=== PATIENT | male | born 1955 | race Caucasian/White ===

== ENCOUNTER 2016-09-04 11:09 | Inpatient (IN) | payer MEDICAID, OTHER ==
[2016-09-04] VITALS (11 sets, daily range): BP systolic 120–150; BP diastolic 66–97; PULSE 100–141; RESP 18–24; TEMP 96.4–102; O2SAT 83–97
[~2016-09-04 11:09] MED LIST: ADVA100A INH; HYDR-3516 PO; LEVA500T PO; LISI-515 PO; LORA-474 PO; PANT20 PO; PLAV75TA29 PO; PRED10 PO; SPIRCAP INH; VENTAER INH
[2016-09-04] MEDS ORDERED: PIPERACIL-TAZO 4.5 GM PREMIX 100 ML IV STA (11:35)
[2016-09-04] MEDS ORDERED: SODIUM CHLOR 0.9% 1000 ML INJ 1,000 ML IV ONE ×2 (11:35)
[2016-09-04] MEDS ORDERED: AZITHROMYCIN INJ 500 MG in SODIUM CHLOR 0.9% 250 ML INJ 250 ML IV STA (11:35)
[2016-09-04] MEDS ORDERED: SODIUM CHLOR 0.9% 1000 ML INJ 400 ML IV ONE (11:35)
[2016-09-04] MEDS ORDERED: methylPREDNISolone SOD SUCC 125 MG/2 ML VIAL IV ONE (11:45)
[2016-09-04] MEDS ORDERED: ACETAMINOPHEN 325 MG TAB PO ONE (11:45)
--- NOTE | 2016-09-04 12:08 | RADRPT ---
EXAM DATE/TIME: 09/04/2016 11:55 [facility] COMPARISON: CHEST SINGLE AP, June 02, 2016, 18:14. INDICATIONS : Shortness of breath. MEDICAL HISTORY : Hypertension. Chronic obstructive pulmonary disease. Emphysema. SURGICAL HISTORY : Right upper lobectomy ENCOUNTER: Initial ACUITY: 3 days PAIN SCORE: 0/10 LOCATION: Bilateral chest FINDINGS: A single view of the chest demonstrates stable scarring and volume loss in the right lung. The left l louie is clear and well-aerated. No new or acute pulmonary infiltrates are demonstrated. The heart size is stable. No definite pleural effusions. No new or significant changes compared to the prior study. . CONCLUSION: No acute disease. No significant change has occurred. Ethan Rutherford MD on September 04, 2016 at 12:06 Board Certified Radiologist. This report was verified electronically.
[2016-09-04 12:09] LABS: AUTOMATED NEUTROPHIL # 7.8 TH/MM3 (1.8-7.7); BASOPHIL % 0.4 % (0.0-2.0); EOSINOPHIL # 0.2 TH/MM3 (0-0.4); EOSINOPHIL % 1.9 % (0.0-4.0); HEMATOCRIT 42.1 % (39.0-51.0); HEMO FLAGS DIFF FINAL; LYMPH % 10.9 % (9.0-44.0); MEAN CELL VOLUME 88.1 FL (80.0-100.0); MEAN CORPUSCULAR HEMOGLOBIN 30.5 PG (27.0-34.0); MEAN CORPUSCULAR HGB CONC 34.6 % (32.0-36.0); MONO % 3.8 % (0.0-8.0); PLATELET COUNT 224 TH/MM3 (150-450); RED BLOOD COUNT 4.78 MIL/MM3 (4.50-5.90); RED CELL DISTRIBUTION WIDTH 13.7 % (11.6-17.2); WHITE BLOOD COUNT 9.4 TH/MM3 (4.0-11.0)
[2016-09-04 12:18] LABS: APTT (PATIENT) 28.7 SEC (24.3-30.1); INTERNATIONAL NORMALIZED RATIO 0.9 RATIO; PROTHROMBIN TIME - PATIENT 10.4 SEC (9.8-11.6)
[2016-09-04 12:27] LABS: ALT (GPT) 19 U/L (12-78); ANION GAP 7 MEQ/L (5-15); AST (GOT) 21 U/L (15-37); BLOOD UREA NITROGEN 5 MG/DL (7-18); CHLORIDE 97 MEQ/L (98-107); GLOMERULAR FILTRATION RATE 89 ML/MIN (>89); MAGNESIUM 1.6 MG/DL (1.5-2.5); SODIUM (NA) 132 MEQ/L (136-145)
[2016-09-04 12:30] LABS: BLOOD, URINE NEG (NEG); GLUCOSE,URINE NEG (NEG); KETONE, URINE NEG (NEG); NITRITE,URINE NEG (NEG); PH, URINE 6.5 (5.0-8.5); SQUAMOUS EPITHELIAL CELL URINE <1 /hpf (0-5); URINE COLOR LIGHT-YELLOW (YELLW/STRAW)
[2016-09-04 12:30] LABS: ALKALINE PHOSPHATASE 93 U/L (45-117)
[2016-09-04 12:31] LABS: COMMENT (UR) CATH-CULT NOT IND; CULTURE IF INDICATED CATH CULTURE NOT IND
[2016-09-04] MEDS: RESP: ALBUTEROL 2.5 MG/IPRATROPIUM 0.5 MG NEB (SCH) INH ×3 (12:45→17:20)
[2016-09-04] MEDS ORDERED: ONDANSETRON HCL 4 MG/2 ML VIAL IVP PRN (13:00)
[2016-09-04] MEDS ORDERED: NALOXONE HCL 0.4 MG/ML AMP IV PRN (13:00)
[2016-09-04] MEDS ORDERED: MAGNESIUM HYDROXIDE SUSP 30 ML CUP PO PRN (13:00)
[2016-09-04] MEDS ORDERED: ACETAMINOPHEN 325 MG TAB PO PRN (13:00)
[2016-09-04] MEDS ORDERED: SODIUM CHLORIDE 0.9% FLUSH 5 ML FLUSH FLUSH PRN (13:00)
--- NOTE | 2016-09-04 13:57 | PD ---
HPI Chief Complaint: Respiratory Distress Time Seen by Provider: 11:32 Travel History International Travel<30 days: No Contact w/Intl Traveler<30days: No Traveled to known affect area: No History of Present Illness HPI Is a 60-year-old man who presents to the emergency department complaining of "can't breathe". Patient had a cold for about 3 days. Yesterday started having increased cough. Denies her having worsening trouble breathing today. His had fevers, chills. He follows with Dr. Shea for pulmonology, and his primary is Dr. Tai. History Past Medical History Narrative Medical COPD, on 2 L Hypertension Right upper lobe resection the right lung Tetanus Vaccination: < 5 Years Social History Alcohol Use: Yes (EVERYDAY ) Tobacco Use: No Allergies-Medications (Allergen,Severity, Reaction): Coded Allergies: No Known Allergies (Verified , 04/25/16) Reported Meds & Prescriptions Reported Meds & Active Scripts Active Levaquin (Levofloxacin) 500 Mg Tab 500 Mg PO DAILY 4 Days Prednisone 10 Mg Tab 10 Mg PO DIRECTED 12 Days 1 PO TID x 4 days 1 PO BID x 4 days then 1 PO daily x 4 days then stop. Reported Protonix (Pantoprazole Sodium) 20 Mg Tab 20 Mg PO DAILY Spiriva Handihaler (Tiotropium Inh) 18 Mcg Cap 18 Mcg INH DAILY 1 capsule = 18 mcg Plavix (Clopidogrel Bisulfate) 75 Mg Tab 75 Mg PO DAILY Ativan (Lorazepam) 1 Mg Tab 1 Mg PO BID Lisinopril 20 Mg Tab 20 Mg PO DAILY Hydrocodone-Acetaminophen 5-325 mg Tab 1 Tab PO Q6H PRN Ventolin Hfa 18 GM Inh (Albuterol Sulfate) 90 Mcg/Act Aer 2 Puff INH Q4H PRN Advair Diskus Inh (Fluticasone-Salmeterol Inh) 100-50 Mcg/Blist Aer 1 Puff INH BID Rinse mouth after use. Review of Systems Except as stated in HPI: all other systems reviewed are Neg Physical Exam Narrative GENERAL: Well-appearing 60-year-old man, moderate respiratory distress. SKIN: Warm and dry. HEAD: Atraumatic. Normocephalic. EYES: Pupils equal and round. No scleral icterus. No injection or drainage. ENT: No nasal bleeding or discharge. Mucous membranes pink and moist. NECK: Trachea midline. No JVD. CARDIOVASCULAR: Regular rate and rhythm. No murmur appreciated. RESPIRATORY: Moderate respiratory distress. Moderate diffuse wheezing with some rhonchi in the posterior lung pedraza. GASTROINTESTINAL: Abdomen soft, non-tender, nondistended. Hepatic and splenic margins not palpable. MUSCULOSKELETAL: No obvious deformities. No edema. NEUROLOGICAL: Awake and alert. No obvious cranial nerve deficits. Motor grossly within normal limits. Normal speech. PSYCHIATRIC: Appropriate mood and affect; insight and judgment normal. Data Data Last Documented VS Vital Signs Date Time Temp Pulse Resp B/P Pulse Ox O2 Delivery O2 Flow Rate FiO2 09/04/16 13:30 98.6 121 18 133/69 96 Nasal Cannula 4 Orders Complete Blood Count With Diff (09/04/16 11:35) Comprehensive Metabolic Panel (09/04/16 11:35) Prothrombin Time / Inr (Pt) (09/04/16 11:35) Act Partial Throm Time (Ptt) (09/04/16 11:35) Lactic Acid Sepsis Protocol (09/04/16 11:35) Magnesium (Mg) (09/04/16 11:35) Troponin I (09/04/16 11:35) Urinalysis - C+S If Indicated (09/04/16 11:35) Influenzae A/B Antigen (09/04/16 11:35) Blood Culture (09/04/16 11:35) Sputum Culture And Gram Stain (09/04/16 11:35) Chest, Single Ap (09/04/16 11:35) Blood Glucose (09/04/16 11:35) Ecg Monitoring (09/04/16 11:35) Iv Access Insert/Monitor (09/04/16 11:35) Oximetry (09/04/16 11:35) Oxygen Administration (09/04/16 11:35) Piperacil-Tazo 4.5 Gm Premix (Zosyn 4.5 (09/04/16 11:35) Azithromycin Inj (Zithromax Inj) (09/04/16 11:35) Albuterol-Ipratropium Neb (Duoneb Neb) (09/04/16 11:45) Methylprednisolone So Succ Inj (Solumedr (09/04/16 11:45) Acetaminophen (Tylenol) (09/04/16 11:45) Sodium Chlor 0.9% 1000 Ml Inj (Ns 1000 M (09/04/16 11:35) Sodium Chlor 0.9% 1000 Ml Inj (Ns 1000 M (09/04/16 11:35) Sodium Chlor 0.9% 1000 Ml Inj (Ns 1000 M (09/04/16 11:35) Sodium Chloride 0.9% Flush (Ns Flush) (09/04/16 13:00) Sodium Chloride 0.9% Flush (Ns Flush) (09/04/16 21:00) Acetaminophen (Tylenol) (09/04/16 13:00) Ondansetron Inj (Zofran Inj) (09/04/16 13:00) Magnesium Hydroxide Liq (Milk Of Magnesi (09/04/16 13:00) Electrocardiogram (09/04/16 12:58) Resp Oxygen Travis C Titrat 1-4 L (09/04/16 ) Naloxone Inj (Narcan Inj) (09/04/16 13:00) Inpatient Certification (09/04/16 ) Ns + Kcl 20 Meq Inj (Ns + Kcl 20 Meq Inj (09/04/16 13:15) Complete Blood Count With Diff (09/05/16 06:00) Basic Metabolic Panel (Bmp) (09/05/16 06:00) Magnesium (Mg) (09/05/16 06:00) Admit Order (Ed Use Only) (09/04/16 ) Labs Laboratory Tests Test 09/04/16 09/04/16 11:50 12:10 White Blood Count 9.4 TH/MM3 Red Blood Count 4.78 MIL/MM3 Hemoglobin 14.6 GM/DL Hematocrit 42.1 % Mean Corpuscular Volume 88.1 FL Mean Corpuscular Hemoglobin 30.5 PG Mean Corpuscular Hemoglobin 34.6 % Concent Red Cell Distribution Width 13.7 % Platelet Count 224 TH/MM3 Mean Platelet Volume 7.4 FL Neutrophils (%) (Auto) 83.0 % Lymphocytes (%) (Auto) 10.9 % Monocytes (%) (Auto) 3.8 % Eosinophils (%) (Auto) 1.9 % Basophils (%) (Auto) 0.4 % Neutrophils # (Auto) 7.8 TH/MM3 Lymphocytes # (Auto) 1.0 TH/MM3 Monocytes # (Auto) 0.4 TH/MM3 Eosinophils # (Auto) 0.2 TH/MM3 Basophils # (Auto) 0.0 TH/MM3 CBC Comment DIFF FINAL Differential Comment Prothrombin Time 10.4 SEC Prothromb Time International 0.9 RATIO Ratio Activated Partial 28.7 SEC Thromboplast Time Sodium Level 132 MEQ/L Potassium Level 4.0 MEQ/L Chloride Level 97 MEQ/L Carbon Dioxide Level 28.0 MEQ/L Anion Gap 7 MEQ/L Blood Urea Nitrogen 5 MG/DL Creatinine 0.87 MG/DL Estimat Glomerular Filtration 89 ML/MIN Rate Random Glucose 87 MG/DL Lactic Acid Level 1.9 mmol/L Calcium Level 9.1 MG/DL Magnesium Level 1.6 MG/DL Total Bilirubin 1.0 MG/DL Aspartate Amino Transf 21 U/L (AST/SGOT) Alanine Aminotransferase 19 U/L (ALT/SGPT) Alkaline Phosphatase 93 U/L Troponin I LESS THAN 0.02 NG/ML Total Protein 7.7 GM/DL Albumin 3.7 GM/DL Urine Color LIGHT-YELLOW Urine Turbidity CLEAR Urine pH 6.5 Urine Specific [place] 1.007 Urine Protein NEG mg/dL Urine Glucose (UA) NEG mg/dL Urine Ketones NEG mg/dL Urine Occult Blood NEG Urine Nitrite NEG Urine Bilirubin NEG Urine Urobilinogen LESS THAN 2.0 MG/DL Urine Leukocyte Esterase NEG Urine RBC 1 /hpf Urine WBC LESS THAN 1 /hpf Urine Squamous Epithelial <1 /hpf Cells Microscopic Urinalysis Comment CATH-CULT NOT IND MDM Medical Decision Making Medical Screen Exam Complete: Yes Emergency Medical Condition: Yes Interpretation(s) My review of EKG: Sinus tachycardia rate of 126, leftward axis, normal intervals , no definite evidence of acute ischemia. Chest x-ray: Negative LABS: CBC unremarkable. CMP unremarkable. Lactate 1.9 Troponin negative Coags unremarkable UA negative Differential Diagnosis Pneumonia, bronchitis, COPD exacerbation, other Narrative Course Medical decision making 60-year-old man who presents emergent from with URI symptoms, probable bronchitis or pneumonia. Moderate respiratory distress. Improved with bronchodilators and steroids. We'll give antibiotic treatment for healthcare associated pneumonia. Admission. Diagnosis Primary Impression: COPD (chronic obstructive pulmonary disease) Qualified Code: J44.1 - Chronic obstructive pulmonary disease with acute exacerbation Kleber Reaves MD Sep 04, 2016 13:57
--- NOTE | 2016-09-04 14:25 | HHI.HP ---
[facility] Primary [facility] Physician Kody Giang M.D. Admission Diagnosis Sepsis, Bronchitis Diagnoses: Chief Complaint: Shortness of breath Travel History International Travel<30 Days: No Contact w/Intl Traveler <30 Da: No Traveled to Known Affected Are: No History of Present Illness This is a 60-year-old male with history of hypertension, severe COPD on home oxygen, status post pneumonectomy in the past who has been in his usual state of health until 4 days ago when he started becoming short of breath, associated with cough productive with yellowish sputum and low-grade fever. Shortness of breath became so progressive and severe today despite using nebulizer treatment since the patient decided to go to the hospital. Patient denies any chest pain , palpitations, abdominal pain, nausea, vomiting, diarrhea, or lower extremity swelling. 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 Past Surgical History IVC filter Right lung lobectomy Reported Medications Last Impressions Chest X-Ray 09/04/16 1135 Signed Impressions: Service Date/Time: Sunday, September 04, 2016 11:55 - CONCLUSION: No acute disease. No significant change has occurred. Ethan Rutherford MD Allergies: Coded Allergies: No Known Allergies (Verified , 04/25/16) Family History Mom: still living and extremely healthy. Dad: heart disease but was a very heavy smoker and drinker. in his 70s. Social History Tobacco use: Denies, stopped smoking 15 years ago. Alcohol use: 6-8 beers a day Illicit drug use: Denies Physical Exam Vital Signs Vital Signs Date Time Temp Pulse Resp B/P Pulse Ox O2 Delivery O2 Flow Rate FiO2 09/04/16 13:30 98.6 121 18 133/69 96 Nasal Cannula 4 09/04/16 12:48 96 Nasal Cannula 4.00 09/04/16 12:10 126 20 150/72 95 Nasal Cannula 4 09/04/16 11:25 95 Nasal Cannula 4 09/04/16 11:25 128 24 94 Nasal Cannula 4 09/04/16 11:20 102.0 129 22 149/97 92 09/04/16 11:10 101.9 141 18 136/87 83 Room Air Physical Exam GENERAL: Mild distress, HEAD: Atraumatic. Normocephalic. No temporal or scalp tenderness. EYES: PERRL, full EOMs, no jaundice, nonicteric, pink conjunctivae without injection, moist mucosa ENT: Nose without bleeding, purulent drainage. Throat without erythema, tonsillar hypertrophy or exudate. Uvula midline. Airway patent. NECK: Trachea midline, no mass, no obvious thyromegaly. No JVD or lymphadenopathy. CARDIOVASCULAR: Borderline tachycardic, regular rhythm, no murmurs. RESPIRATORY: Bilateral rhonchi, no crackles, occasional wheezing anteriorly especially on the left. GASTROINTESTINAL: Abdomen soft, normal bowel sounds, non-tender, nondistended. No hepato-splenomegaly or palpable mass. No guarding. ALECIA and exam deferred. MUSCULOSKELETAL: Extremities without clubbing, cyanosis, trace edema. No joint tendernes. No calf tenderness. Distal pulses intact, 2+ bilaterally. INTEGUMENTARY: Warm and dry, no rash of generalized distribution. NEUROLOGICAL: Awake, alert, oriented 3. No obvious cranial nerve deficits. Moves all 4 extremities, muscle strength testing 5 over 5. Motor and sensory grossly within normal limits. .Supple neck, no meningeal signs. Grossly negative cerebellar examination. No focal neurologic deficits. PSYCHIATRIC: Normal mood, appropriate affect. Laboratory Laboratory Tests Test 09/04/16 09/04/16 11:50 12:10 White Blood Count 9.4 Red Blood Count 4.78 Hemoglobin 14.6 Hematocrit 42.1 Mean Corpuscular Volume 88.1 Mean Corpuscular Hemoglobin 30.5 Mean Corpuscular Hemoglobin 34.6 Concent Red Cell Distribution Width 13.7 Platelet Count 224 Mean Platelet Volume 7.4 Neutrophils (%) (Auto) 83.0 Lymphocytes (%) (Auto) 10.9 Monocytes (%) (Auto) 3.8 Eosinophils (%) (Auto) 1.9 Basophils (%) (Auto) 0.4 Neutrophils # (Auto) 7.8 Lymphocytes # (Auto) 1.0 Monocytes # (Auto) 0.4 Eosinophils # (Auto) 0.2 Basophils # (Auto) 0.0 CBC Comment DIFF FINAL Differential Comment Prothrombin Time 10.4 Prothromb Time International 0.9 Ratio Activated Partial 28.7 Thromboplast Time Sodium Level 132 Potassium Level 4.0 Chloride Level 97 Carbon Dioxide Level 28.0 Anion Gap 7 Blood Urea Nitrogen 5 Creatinine 0.87 Estimat Glomerular Filtration 89 Rate Random Glucose 87 Lactic Acid Level 1.9 Calcium Level 9.1 Magnesium Level 1.6 Total Bilirubin 1.0 Aspartate Amino Transf 21 (AST/SGOT) Alanine Aminotransferase 19 (ALT/SGPT) Alkaline Phosphatase 93 Troponin I LESS THAN 0.02 Total Protein 7.7 Albumin 3.7 Urine Color LIGHT-YELLOW Urine Turbidity CLEAR Urine pH 6.5 Urine Specific [place] 1.007 Urine Protein NEG Urine Glucose (UA) NEG Urine Ketones NEG Urine Occult Blood NEG Urine Nitrite NEG Urine Bilirubin NEG Urine Urobilinogen LESS THAN 2.0 Urine Leukocyte Esterase NEG Urine RBC 1 Urine WBC LESS THAN 1 Urine Squamous Epithelial <1 Cells Microscopic Urinalysis Comment CATH-CULT NOT IND Date/Time Procedure Status Source Growth 09/04/16 11:50 Influenza Types A,B Antigen (JARAD) - Final Complete Nasal Washing NEGATIVE FOR FLU A AND B ANTIGEN.... 09/04/16 11:50 Gram Stain Received Sputum Expectorated Sputum Pending 09/04/16 11:50 Sputum Culture Received Sputum Expectorated Sputum Pending 09/04/16 11:50 Aerobic Blood Culture Received Blood Peripheral Pending 09/04/16 11:50 Anaerobic Blood Culture Received Blood Peripheral Pending Result Diagram: 09/04/16 1150 09/04/16 1150 Imaging Last Impressions Chest X-Ray 09/04/16 1135 Signed Impressions: Service Date/Time: Sunday, September 04, 2016 11:55 - CONCLUSION: No acute disease. No significant change has occurred. Ethan Rutherford MD Assessment and Plan Assessment and Plan This is a 60-year-old male with history of COPD, hypertension on home oxygen admitted for shortness of breath for 4 days COPD exacerbation with sepsis secondary to pneumonia-patient frequently goes to the hospital, chest x-ray personally reviewed is unremarkable, likely with COPD exacerbation and developing pneumonia. Check Legionella antigen, influenza negative, follow-up sputum culture. Start Zosyn and azithromycin. DuoNeb's [id number] and as needed, expectorants, Solu-Medrol intravenously every 8 hours. Continue Spiriva, it technical architect is Dr. Shea. Continue Advair, Hypertension - continue lisinopril, Vasotec as needed. Anxiety-continue Ativan as needed. ? Peripheral vascular disease-continue Plavix Lovenox for DVT prophylaxis Physician Certification 2 Midnight Certification Type: Admission for Inpatient Services Order for Inpatient Services The services are ordered in accordance with Medicare regulations or non- Medicare payer requirements, as applicable. In the case of services not specified as inpatient-only, they are appropriately provided as inpatient services in accordance with the 2-midnight benchmark. Estimated LOS (days): 2 days is the estimated time the patient will need to remain in the hospital, assuming treatment plan goals are met and no additional complications. Post-Hospital Plan: Home Vance Henderson MD Sep 04, 2016 14:25
[2016-09-04] MEDS: NS + KCL 20 MEQ INJ 1,000 ML IV SCH (14:44)
[2016-09-04] MEDS ORDERED: SODIUM CHLORIDE 0.9% FLUSH 5 ML FLUSH IV FLUSH PRN (14:45)
[2016-09-04] MEDS ORDERED: RESP: ALBUTEROL 2.5 MG/IPRATROPIUM 0.5 MG NEB (PRN) INH (14:45)
[2016-09-04] MEDS ORDERED: ENALAPRILAT 1.25 MG/ML VIAL IV PUSH PRN (15:00)
[2016-09-04] MEDS: ACETAMINOPHEN/HYDROcodone 325 MG/5 MG TAB PO PRN ×2 (15:56→21:53)
[2016-09-04] MEDS: ENOXAPARIN SODIUM 40 MG/0.4 ML SYRINGE SQ SCH (15:58)
[2016-09-04] MEDS: LORazepam 1 MG TAB PO PRN ×2 (17:05→21:53)
[2016-09-04] MEDS: guaiFENesin/CODEINE SYRUP 200 MG/20 MG/10 ML CUP PO PRN ×2 (17:09→21:53)
[2016-09-04] MEDS: PIPERACIL-TAZO 4.5 GM PREMIX 100 ML IV SCH (17:45)
[2016-09-04] MEDS: SODIUM CHLORIDE 0.9% FLUSH 5 ML FLUSH IV FLUSH SCH (20:00)
[2016-09-04] MEDS: methylPREDNISolone SOD SUCC 40 MG/1 ML VIAL IV SCH (20:00)
[2016-09-04] MEDS ORDERED: SODIUM CHLORIDE 0.9% FLUSH 5 ML FLUSH FLUSH SCH (21:00)
[2016-09-04] MEDS: BUDESONIDE-FORMOTEROL 80/4.5 MCG INHALER INH SCH (21:57)
[2016-09-05] VITALS (9 sets, daily range): BP systolic 121–134; BP diastolic 73–81; PULSE 101–109; RESP 18–22; TEMP 95.8–97.5; O2SAT 94–96
[2016-09-05] MEDS: PIPERACIL-TAZO 4.5 GM PREMIX 100 ML IV SCH ×4 (00:01→16:29)
[2016-09-05] MEDS: RESP: ALBUTEROL 2.5 MG/IPRATROPIUM 0.5 MG NEB (SCH) INH ×5 (04:55→21:37)
[2016-09-05] MEDS: NS + KCL 20 MEQ INJ 1,000 ML IV SCH ×2 (05:18→12:17)
[2016-09-05] MEDS: methylPREDNISolone SOD SUCC 40 MG/1 ML VIAL IV SCH ×3 (05:19→20:44)
[2016-09-05] MEDS: guaiFENesin/CODEINE SYRUP 200 MG/20 MG/10 ML CUP PO PRN ×2 (05:54→12:13)
[2016-09-05 08:33] LABS: AUTOMATED NEUTROPHIL # 8.2 TH/MM3 (1.8-7.7); HEMATOCRIT 36.8 % (39.0-51.0); HEMO FLAGS DIFF FINAL; LYMPHOCYTE # 0.3 TH/MM3 (1.0-4.8); MEAN CELL VOLUME 88.1 FL (80.0-100.0); MEAN CORPUSCULAR HEMOGLOBIN 30.1 PG (27.0-34.0); MEAN CORPUSCULAR HGB CONC 34.1 % (32.0-36.0); MONO % 1.6 % (0.0-8.0); NEUT % 95.4 % (16.0-70.0); PLATELET COUNT 174 TH/MM3 (150-450); RED BLOOD COUNT 4.18 MIL/MM3 (4.50-5.90); RED CELL DISTRIBUTION WIDTH 13.8 % (11.6-17.2); WHITE BLOOD COUNT 8.6 TH/MM3 (4.0-11.0)
[2016-09-05 08:54] LABS: BICARBONATE 23.5 MEQ/L (21.0-32.0); MAGNESIUM 1.8 MG/DL (1.5-2.5)
[2016-09-05 08:55] LABS: POTASSIUM 3.8 MEQ/L (3.5-5.1)
[2016-09-05] MEDS: TIOTROPIUM BROMIDE 18 MCG INH INH SCH (09:00)
[2016-09-05] MEDS: BUDESONIDE-FORMOTEROL 80/4.5 MCG INHALER INH SCH ×2 (09:00→20:45)
[2016-09-05] MEDS: LISINOPRIL 20 MG TAB PO SCH (09:28)
[2016-09-05] MEDS: PANTOPRAZOLE SOD 20 MG DELAYED RELEASE TAB PO SCH (09:28)
[2016-09-05] MEDS: CLOPIDOGREL 75 MG TAB PO SCH (09:28)
[2016-09-05] MEDS: SODIUM CHLORIDE 0.9% FLUSH 5 ML FLUSH IV FLUSH SCH ×2 (09:29→20:45)
[2016-09-05] MEDS: ACETAMINOPHEN/HYDROcodone 325 MG/5 MG TAB PO PRN ×2 (12:13→18:13)
[2016-09-05] MEDS ORDERED: AZITHROMYCIN INJ 500 MG in SODIUM CHLOR 0.9% 250 ML INJ 250 ML IV SCH (14:00)
--- NOTE | 2016-09-05 15:55 | EKG ---
Date Performed: 09/04/2016 Time Performed: 11:19:32 PTAGE: 60 years EKG: SINUS TACHYCARDIA BORDERLINE LEFT AXIS DEVIATION Compared to prior tracing no significant c hange ABNORMAL RHYTHM ECG PREVIOUS TRACING : 04/28/2016 20.34 DOCTOR: Gayatri Velasco Interpretating Date/Time 09/05/2016 15:54:08
--- NOTE | 2016-09-05 16:19 | HHI.PR ---
Subjective Remarks Follow-up for COPD Patient is short of breath than yesterday but still not back to normal. No chest pain or palpitations. Has been coughing but cannot bring it up. Afebrile. Patient has questions about nodules that were observed from a CT scan of the chest that was previously done. He is scheduled to have other CT scan of the chest by Dr. Shea September 14. Objective Vitals Vital Signs Date Time Temp Pulse Resp B/P Pulse Ox O2 Delivery O2 Flow Rate FiO2 09/05/16 12:49 97.2 109 18 134/74 94 09/05/16 09:42 95 Nasal Cannula 3.00 09/05/16 08:27 95.8 101 18 121/73 94 09/05/16 06:15 96.1 109 22 133/81 95 09/05/16 00:35 95 Nasal Cannula 3.00 09/04/16 23:55 96.4 102 18 120/72 95 09/04/16 20:30 97.6 109 24 134/70 96 09/04/16 19:59 98.9 100 18 125/66 96 Nasal Cannula 2.5 09/04/16 19:00 97 Nasal Cannula 2.50 09/04/16 17:30 118 18 121/71 96 Nasal Cannula 2.5 I/O 09/04/16 09/04/16 09/04/16 09/05/16 09/05/16 09/05/16 06:59 14:59 22:59 06:59 14:59 22:59 Intake Total 480 ml 720 ml Output Total 1475 ml 0 ml 1200 ml Balance -995 ml 0 ml -480 ml Intake Oral 480 ml 720 ml Output Urine Total 1475 ml 0 ml 1200 ml # Voids 1 # Bowel Movements 0 0 0 Result Diagram: 09/05/16 0803 09/05/16 0806 Objective Remarks Not in distress, well-nourished, looks stated age PERRL, pink conjunctiva without injection, anicteric Nose without bleeding, airway patent, oropharynx clear Supple neck, no masses or thyromegaly, trachea midline Normal rate and regular rhythm, no murmurs gallops or rubs appreciated. Occasional wheezing, no crackles or rhonchi. Normal bowel sounds, soft, non-tender, nondistended, no guarding. Extremities without clubbing, cyanosis, or edema. No rash of generalized distribution. Skin is warm and dry. AAO x3, no cranial nerve deficits, moves all 4 extremities, no focal neurologic deficits Normal mood, appropriate affect A/P Assessment and Plan This is a 60-year-old male with history of COPD, hypertension on home oxygen admitted for shortness of breath for 4 days COPD exacerbation with sepsis secondary to pneumonia-patient frequently goes to the hospital, chest x-ray personally reviewed is unremarkable, likely with COPD exacerbation and developing pneumonia. Influenza negative, sputum culture grew normal arpita, awaiting urine Legionella antigen. Continue Zosyn and azithromycin. DuoNeb's [id number] and as needed, expectorants, Solu- Medrol intravenously every 8 hours. Continue Spiriva, machinery mover is Dr. Shea. Continue Advair, start Mucomyst nebulization, Acapella and incentive spirometry. CT scan lung abnormality- records reviewed, consolidation from CT scan in April 2016, result from chest x-ray during this hospitalization. Hypertension - continue lisinopril, Vasotec as needed. Anxiety-continue Ativan as needed. ? Peripheral vascular disease-continue Plavix Lovenox for DVT prophylaxis Stop IVF. Vance Henderson MD Sep 05, 2016 16:19
[2016-09-05] MEDS: ENOXAPARIN SODIUM 40 MG/0.4 ML SYRINGE SQ SCH (16:29)
[2016-09-05] MEDS: LORazepam 1 MG TAB PO PRN (20:44)
[2016-09-06] VITALS (9 sets, daily range): BP systolic 132–159; BP diastolic 73–86; PULSE 66–100; RESP 16–20; TEMP 95.6–98.1; O2SAT 91–97
[2016-09-06] MEDS: PIPERACIL-TAZO 4.5 GM PREMIX 100 ML IV SCH ×5 (00:02→23:13)
[2016-09-06] MEDS: ACETAMINOPHEN/HYDROcodone 325 MG/5 MG TAB PO PRN ×4 (00:07→21:07)
[2016-09-06] MEDS: RESP: ALBUTEROL 2.5 MG/IPRATROPIUM 0.5 MG NEB (SCH) INH ×4 (03:40→22:16)
[2016-09-06] MEDS: LORazepam 1 MG TAB PO PRN ×4 (03:56→23:11)
[2016-09-06] MEDS: methylPREDNISolone SOD SUCC 40 MG/1 ML VIAL IV SCH ×3 (05:20→21:07)
[2016-09-06] MEDS: SODIUM CHLORIDE 0.9% FLUSH 5 ML FLUSH IV FLUSH SCH ×2 (09:00→21:00)
[2016-09-06] MEDS: RESP: ACETYLCYSTEINE 10% 30 ML NEB NEB SCH ×2 (09:24→15:09)
[2016-09-06] MEDS: PANTOPRAZOLE SOD 20 MG DELAYED RELEASE TAB PO SCH (09:52)
[2016-09-06] MEDS: LISINOPRIL 20 MG TAB PO SCH (09:52)
[2016-09-06] MEDS: CLOPIDOGREL 75 MG TAB PO SCH (09:52)
[2016-09-06] MEDS: AZITHROMYCIN 250 MG TAB PO SCH (09:53)
[2016-09-06] MEDS: BUDESONIDE-FORMOTEROL 80/4.5 MCG INHALER INH SCH ×2 (09:54→21:00)
[2016-09-06] MEDS: TIOTROPIUM BROMIDE 18 MCG INH INH SCH (09:54)
[2016-09-06] MEDS: ENOXAPARIN SODIUM 40 MG/0.4 ML SYRINGE SQ SCH (15:00)
--- NOTE | 2016-09-06 17:16 | HHI.PR ---
Subjective Remarks Follow-up for COPD Breathing is better but not get back to baseline. Hasn't had a bowel movement in several days. Passing gas. No abdominal pain, nausea or vomiting. Afebrile. Objective Vitals Vital Signs Date Time Temp Pulse Resp B/P Pulse Ox O2 Delivery O2 Flow Rate FiO2 09/06/16 16:15 97.2 99 20 159/75 91 09/06/16 11:20 96.4 82 20 135/84 95 09/06/16 09:28 95 Nasal Cannula 3.00 09/06/16 07:35 95.9 95 19 132/86 95 09/06/16 04:00 95.6 100 20 139/83 95 09/06/16 03:40 97 Nasal Cannula 3.00 09/06/16 00:53 97.6 97 20 144/73 95 09/05/16 20:04 97.5 103 18 133/74 96 09/05/16 20:00 97.5 103 18 133/74 96 I/O 09/05/16 09/05/16 09/05/16 09/06/16 09/06/16 09/06/16 07:00 15:00 23:00 07:00 15:00 23:00 Intake Total 720 ml 240 ml 240 ml 480 ml Output Total 0 ml 1200 ml 800 ml 900 ml Balance 0 ml -480 ml 240 ml -560 ml -420 ml Intake Oral 720 ml 240 ml 240 ml 480 ml Output Urine Total 0 ml 1200 ml 800 ml 900 ml # Voids 0 # Bowel Movements 0 0 0 0 1 Result Diagram: 09/05/16 0803 09/05/16 0806 Objective Remarks Not in distress, well-nourished, looks stated age PERRL, pink conjunctiva without injection, anicteric Nose without bleeding, airway patent, oropharynx clear Supple neck, no masses or thyromegaly, trachea midline Normal rate and regular rhythm, no murmurs gallops or rubs appreciated. No wheezing, no crackles or rhonchi. Normal bowel sounds, soft, non-tender, nondistended, no guarding. Extremities without clubbing, cyanosis, or edema. No rash of generalized distribution. Skin is warm and dry. AAO x3, no cranial nerve deficits, moves all 4 extremities, no focal neurologic deficits Normal mood, appropriate affect A/P Assessment and Plan This is a 60-year-old male with history of COPD, hypertension on home oxygen admitted for shortness of breath for 4 days COPD exacerbation with sepsis secondary to pneumonia-patient frequently goes to the hospital, chest x-ray personally reviewed is unremarkable, likely with COPD exacerbation and developing pneumonia. Influenza negative, sputum culture grew normal arpita, awaiting urine Legionella antigen. Continue Zosyn and azithromycin. DuoNeb's [id number] and as needed, expectorants, decrease Solu-Medrol. 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 Continue Advair, continue Mucomyst nebulization, Acapella and incentive spirometry. Possible discharge tomorrow CT scan lung abnormality- records reviewed, consolidation from CT scan in April 2016, result from chest x-ray during this hospitalization. Constipation-start Jane-Colace and MiraLAX. Hypertension - continue lisinopril, Vasotec as needed. Anxiety-continue Ativan as needed. ? Peripheral vascular disease-continue Plavix Lovenox for DVT prophylaxis Vance Henderson MD Sep 06, 2016 17:16
[2016-09-06] MEDS ORDERED: POLYETHYLENE GLYCOL 17 GM PKG PO ONE (17:45)
[2016-09-06] MEDS: DOCUSATE SODIUM 50 MG/SENNA 8.6 MG TAB PO SCH (21:07)
[2016-09-06] MEDS: guaiFENesin/CODEINE SYRUP 200 MG/20 MG/10 ML CUP PO PRN (23:11)
[2016-09-07] MEDS: methylPREDNISolone SOD SUCC 40 MG/1 ML VIAL IV SCH ×3 (04:17→20:03)
[2016-09-07] MEDS: RESP: ALBUTEROL 2.5 MG/IPRATROPIUM 0.5 MG NEB (SCH) INH ×4 (04:54→20:08)
[2016-09-07 05:14] VITALS: BP 151/93; PULSE 92; RESP 18; TEMP 98.4; O2SAT 94
[2016-09-07] MEDS: ACETAMINOPHEN/HYDROcodone 325 MG/5 MG TAB PO PRN ×3 (05:38→21:38)
[2016-09-07] MEDS: PIPERACIL-TAZO 4.5 GM PREMIX 100 ML IV SCH ×3 (05:38→17:59)
[2016-09-07 08:00] VITALS: BP 162/91; PULSE 87; RESP 20; TEMP 96.5; O2SAT 94
[2016-09-07] MEDS: POLYETHYLENE GLYCOL 17 GM PKG PO SCH (09:00)
[2016-09-07 09:13] VITALS: O2SAT 92
[2016-09-07] MEDS: RESP: ACETYLCYSTEINE 10% 30 ML NEB NEB SCH ×3 (09:13→17:26)
[2016-09-07] MEDS: LISINOPRIL 20 MG TAB PO SCH (10:26)
[2016-09-07] MEDS: CLOPIDOGREL 75 MG TAB PO SCH (10:27)
[2016-09-07] MEDS: PANTOPRAZOLE SOD 20 MG DELAYED RELEASE TAB PO SCH (10:27)
[2016-09-07] MEDS: DOCUSATE SODIUM 50 MG/SENNA 8.6 MG TAB PO SCH ×2 (10:27→20:05)
[2016-09-07] MEDS: SODIUM CHLORIDE 0.9% FLUSH 5 ML FLUSH IV FLUSH SCH ×2 (10:28→20:03)
[2016-09-07] MEDS: AZITHROMYCIN 250 MG TAB PO SCH (10:28)
[2016-09-07] MEDS: TIOTROPIUM BROMIDE 18 MCG INH INH SCH (10:28)
[2016-09-07] MEDS: BUDESONIDE-FORMOTEROL 80/4.5 MCG INHALER INH SCH ×2 (10:28→20:04)
[2016-09-07] MEDS: LORazepam 1 MG TAB PO PRN ×2 (10:49→18:11)
[2016-09-07 12:00] VITALS: BP 143/73; PULSE 71; RESP 20; TEMP 96.5; O2SAT 93
[2016-09-07] MEDS ORDERED: IOHEXOL 350 MG/ML 10 ML VIAL (for RAD DIAG) IV ONE (13:50)
--- NOTE | 2016-09-07 14:32 | RADRPT ---
EXAM DATE/TIME: 09/07/2016 13:43 [facility] COMPARISON: CT THORAX W/O CONTRAST, April 25, 2016, 2:12. CT PULMONARY ANGIOGRAM, June 18, 2015, 11:20. INDICATIONS : Short of breath. Evaluate for embolism. IV CONTRAST: 60 cc Omnipaque 350 (iohexol) IV RADIATION DOSE: 23.28 CTDIvol (mGy) MEDICAL HISTORY : Cardiovascular disease. Hypertension. Skin cancer. SURGICAL HISTORY : Right upper lobectomy. ENCOUNTER: Initial ACUITY: 1 day PAIN SCALE: 0/10 LOCATION: chest TECHNIQUE: Volumetric scanning of the chest was performed using a pulmonary embolism protocol MIP images were re constructed. Using automated exposure control and adjustment of the mA and/or kV according to patien t size, radiation dose was kept as low as reasonably achievable to obtain optimal diagnostic quality images. FINDINGS: PULMONARY ARTERIES: No filling defects are seen in the pulmonary arteries through the segmental level. LUNGS: Evidence of prior right upper lobectomy. Stable thickwalled cavity at the right lung apex. Air-fluid level no longer seen. Mild atelectasis at the dependent portion of the right lower lung. Calcified gr anulomas in the right lower lung. Mild atelectasis at the dependent portion of the left lower lobe, l ess prominent than on the comparison study of April 2016. There is debris within the right lower lobe bronchus. Calcified granulomas in the left lower lung. PLEURAE: There is no pleural thickening or pleural effusion. MEDIASTINUM: No enlarged lymph nodes. Coronary artery calcifications noted. MUSCULOSKELETAL: Within normal limits for patient age. MISCELLANEOUS: Upper abdomen within normal limits. CONCLUSION: 1. No evidence of pulmonary embolus. 2. Status post right upper lobectomy. 3. Right apical cavity unchanged. 4. Old granulomatous disease. 5. Patchy atelectasis bilaterally. 6. Mucous/debris seen in the right lower lobe bronchus. Michele Ramirez MD on September 07, 2016 at 14:14 Board Certified Radiologist. This report was verified electronically.
[2016-09-07] MEDS: ENOXAPARIN SODIUM 40 MG/0.4 ML SYRINGE SQ SCH (15:05)
--- NOTE | 2016-09-07 15:34 | HHI.PR ---
Subjective Remarks Follow for shortness of breath Shortness of breath a lot better today but still very much winded when walking, on exertion and even at rest. Afebrile. Denies any chest pain. Objective Vitals Vital Signs Date Time Temp Pulse Resp B/P Pulse Ox O2 Delivery O2 Flow Rate FiO2 09/07/16 12:00 96.5 71 20 143/73 93 09/07/16 09:13 92 Nasal Cannula 4.00 09/07/16 09:13 92 Nasal Cannula 2.00 09/07/16 08:00 96.5 87 20 162/91 94 09/07/16 05:14 98.4 92 18 151/93 94 09/06/16 22:20 94 Nasal Cannula 3.00 09/06/16 20:03 98.1 66 16 139/79 93 09/06/16 16:15 97.2 99 20 159/75 91 I/O 09/06/16 09/06/16 09/06/16 09/07/16 09/07/16 09/07/16 07:00 15:00 23:00 07:00 15:00 23:00 Intake Total 240 ml 480 ml Output Total 800 ml 900 ml 900 ml 1900 ml Balance -560 ml -420 ml -900 ml -1900 ml Intake Oral 240 ml 480 ml Output Urine Total 800 ml 900 ml 900 ml 1900 ml # Bowel Movements 0 1 Result Diagram: 09/05/16 0803 09/05/16 0806 Objective Remarks Not in distress, well-nourished, looks stated age PERRL, pink conjunctiva without injection, anicteric Nose without bleeding, airway patent, oropharynx clear Supple neck, no masses or thyromegaly, trachea midline Normal rate and regular rhythm, no murmurs gallops or rubs appreciated. Decreased breath sounds bilaterally, occasional wheezing, no crackles. Normal bowel sounds, soft, non-tender, nondistended, no guarding. Extremities without clubbing, cyanosis, or edema. No rash of generalized distribution. Skin is warm and dry. AAO x3, no cranial nerve deficits, moves all 4 extremities, no focal neurologic deficits Normal mood, appropriate affect A/P Assessment and Plan This is a 60-year-old male with history of COPD, hypertension on home oxygen admitted for shortness of breath for 4 days COPD exacerbation with sepsis secondary to pneumonia-patient frequently goes to the hospital, chest x-ray personally reviewed is unremarkable, likely with COPD exacerbation and developing pneumonia. Influenza negative, sputum culture grew normal arpita, awaiting urine Legionella negative. Continue Zosyn and azithromycin. DuoNeb's [id number] and as needed, expectorants, continue Solu-Medrol. Continue Spiriva, backshoe person is Dr. Shea. Continue Advair, continue Mucomyst nebulization, Acapella and incentive spirometry. Still short of breath, not ready for discharge. Check CT scan of the chest today, personally reviewed, showed previous lobectomy, right apical cavity, granulomatous disease with patchy atelectasis. There is also mucus in the right lower lobe bronchus. Consult pulmonary. CT scan lung abnormality- records reviewed, consolidation from CT scan in April 2016, result from chest x-ray during this hospitalization. CT scan of the chest as above. Constipation- continue Jane-Colace and MiraLAX. Hypertension - continue lisinopril, Vasotec as needed. Anxiety-continue Ativan as needed. ? Peripheral vascular disease-continue Plavix Lovenox for DVT prophylaxis Patient will eventually need home health care on discharge. Vance Henderson MD Sep 07, 2016 15:34
[2016-09-07 20:11] VITALS: O2SAT 94
[2016-09-07 20:30] VITALS: BP 154/85; PULSE 88; RESP 19; TEMP 97.9; O2SAT 94
--- NOTE | 2016-09-07 20:33 | MB ---
cc: NGUYEN VILLAFUERTE MD DATE OF CONSULTATION: 09/07/2016. REASON FOR CONSULTATION: COPD exacerbation. REQUESTING PHYSICIAN: Dr. Henderson. HISTORY OF PRESENT ILLNESS: Mr. Lizama is a pleasant 60-year-old male with history of COPD, lung infection status post right upper lobectomy with infection. He has frequent exacerbations of his COPD and requires breathing treatments and oxygen at home. He was getting worse and he had a low-grade fever. He had cough with mucus production. He has no nausea or vomiting. With these symptoms, he came to the hospital. He had a CTA of the chest done and it does not show any pulmonary embolism. It shows evidence of a right upper lobectomy and right apical cavity which is unchanged. He also has granulomatous disease of the lung. His CBC showed WBC count 8.6, hemoglobin 12.6, hematocrit 36.8, MCH 80, platelet count 174,000. Sodium 136, potassium 3.8, chloride 101, carbon dioxide 23, BUN 10, creatinine 0.82. INR is 0.9. PAST MEDICAL HISTORY: His past medical history is significant for: 1. History of COPD. 2. Hypertension. 3. Right upper lobectomy. 4. Anxiety. 5. History of pulmonary embolism. 6. DVT. 7. IVC filter placement. MEDICATIONS: He is currently takin. MiraLax. 2. Zithromax 500 milligrams a day. 3. Mucomyst nebulizer treatment. 4. Plavix 75 milligrams a day. 5. Prinivil 20 milligrams a day. 6. Protonix 20 milligrams a day. 7. Spiriva once a day. 8. Symbicort 80/4.52 puffs twice a day. 9. Solu-Medrol 40 milligrams q. 8 hours. 10. Zosyn IV. 11. Lovenox 40 milligrams a day. 12. Robitussin AC cough syrup. ALLERGIES: NO KNOWN DRUG ALLERGIES. SOCIAL HISTORY: He has a long history of smoking which he quit. Also he used to drink heavily, particularly when he was depressed. 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 FAMILY HISTORY: He is aguilar. He lives with his male partner who has a child. REVIEW OF SYSTEMS: Normally he is up around and active. He uses oxygen all the time. No seizure, stroke or epilepsy. He has a history of DVT and pulmonary embolism. PHYSICAL EXAMINATION: GENERAL: A well-built and well-nourished male mild short of breath but not in any acute distress. VITAL SIGNS: Blood pressure 1432/73, heart rate 71, respirations 20, temperature 96.5. HEAD, EYES, EARS, NOSE, THROAT: Unremarkable. NECK: The neck is supple. JVP not raised. CHEST: Air entry equal bilaterally. He has expiratory rhonchi. CARDIOVASCULAR: S1 and S2 normal. ABDOMEN: Abdomen benign. EXTREMITIES: No edema. IMPRESSION: 1. COPD exacerbation. 2. Bronchitis. 3. No pulmonary embolism. 4. Status post right upper lobectomy and he has a right apical cavitary lesion. 5. History of DVT status post IVC filter placement. 6. Pulmonary embolism. PLAN: 1. I discussed with the patient that we will continue antibiotics. 2. Aerosol treatments with albuterol and Atrovent. 3. Mucomyst nebulizer treatments. 4. Symbicort twice a day. 5. Lovenox for DVT prophylaxis. 6. Supplement oxygen to keep the saturation greater than 90%. Further treatment will depend on the course in the hospital. Thank you, Dr. Henderson, for this consult. MD DOROTHY Amor/MANNY /7:49 PM /8:20 PM
[2016-09-08] VITALS (9 sets, daily range): BP systolic 130–162; BP diastolic 72–100; PULSE 77–100; RESP 17–20; TEMP 96–98.1; O2SAT 93–98
[2016-09-08] MEDS: PIPERACIL-TAZO 4.5 GM PREMIX 100 ML IV SCH ×4 (01:24→17:16)
[2016-09-08] MEDS: LORazepam 1 MG TAB PO PRN ×4 (01:32→22:23)
[2016-09-08] MEDS: RESP: ALBUTEROL 2.5 MG/IPRATROPIUM 0.5 MG NEB (SCH) INH ×4 (03:46→21:45)
[2016-09-08] MEDS: methylPREDNISolone SOD SUCC 40 MG/1 ML VIAL IV SCH ×3 (04:59→22:16)
[2016-09-08] MEDS: ACETAMINOPHEN/HYDROcodone 325 MG/5 MG TAB PO PRN ×3 (05:24→18:50)
[2016-09-08] MEDS: POLYETHYLENE GLYCOL 17 GM PKG PO SCH (08:53)
[2016-09-08] MEDS: AZITHROMYCIN 250 MG TAB PO SCH (08:54)
[2016-09-08] MEDS: PANTOPRAZOLE SOD 20 MG DELAYED RELEASE TAB PO SCH (08:54)
[2016-09-08] MEDS: CLOPIDOGREL 75 MG TAB PO SCH (08:54)
[2016-09-08] MEDS: DOCUSATE SODIUM 50 MG/SENNA 8.6 MG TAB PO SCH ×2 (08:54→21:00)
[2016-09-08] MEDS: LISINOPRIL 20 MG TAB PO SCH (08:54)
[2016-09-08] MEDS: TIOTROPIUM BROMIDE 18 MCG INH INH SCH (08:55)
[2016-09-08] MEDS: BUDESONIDE-FORMOTEROL 80/4.5 MCG INHALER INH SCH ×2 (08:55→22:17)
[2016-09-08] MEDS: RESP: ACETYLCYSTEINE 10% 30 ML NEB NEB SCH ×3 (08:56→17:33)
[2016-09-08] MEDS: SODIUM CHLORIDE 0.9% FLUSH 5 ML FLUSH IV FLUSH SCH ×2 (08:56→22:17)
--- NOTE | 2016-09-08 11:33 | HHI.PR ---
Subjective Remarks Follow-up for shortness of breath Shortness of breath better today but still very dyspneic on exertion, afebrile, cough is improved. -1.3 L overnight. Objective Vitals Vital Signs Date Time Temp Pulse Resp B/P Pulse Ox O2 Delivery O2 Flow Rate FiO2 09/08/16 10:46 94 Nasal Cannula 2.00 09/08/16 08:00 96.0 77 20 130/89 94 09/08/16 04:36 98.1 89 17 136/87 95 09/08/16 03:48 95 Nasal Cannula 4.00 09/08/16 00:23 97.4 89 17 162/100 93 09/07/16 20:30 97.9 88 19 154/85 94 09/07/16 20:11 94 Nasal Cannula 4.00 09/07/16 12:00 96.5 71 20 143/73 93 I/O 09/07/16 09/07/16 09/07/16 09/08/16 09/08/16 09/08/16 07:00 15:00 23:00 07:00 15:00 23:00 Intake Total 360 ml Output Total 1900 ml 1700 ml Balance -1900 ml 360 ml -1700 ml Intake Oral 360 ml Output Urine Total 1900 ml 1700 ml Result Diagram: 09/05/16 0803 09/05/16 0806 Objective Remarks Not in distress, well-nourished, looks stated age PERRL, pink conjunctiva without injection, anicteric Nose without bleeding, airway patent, Normal rate and regular rhythm, no murmurs gallops or rubs appreciated. Decreased breath sounds bilaterally but no wheezing. Normal bowel sounds, soft, non-tender, nondistended, no guarding. Extremities without clubbing, cyanosis, or edema. No rash of generalized distribution. Skin is warm and dry. AAO x3, no cranial nerve deficits, moves all 4 extremities, no focal neurologic deficits Normal mood, appropriate affect A/P Assessment and Plan This is a 60-year-old male with history of COPD, hypertension on home oxygen admitted for shortness of breath for 4 days COPD exacerbation with sepsis secondary to pneumonia-patient frequently goes to the hospital, chest x-ray personally reviewed is unremarkable, likely with COPD exacerbation and developing pneumonia. Influenza negative, sputum culture grew normal arpita, awaiting urine Legionella negative. CT scan of the chest unremarkable, showed previous lobectomy, right apical cavity, granulomatous disease with patchy atelectasis. There is also mucus in the right lower lobe bronchus. Pulmonary following, no further to add. - Continue Zosyn and azithromycin. DuoNeb's [id number] and as needed, expectorants, continue Solu-Medrol. Continue Spiriva, psychotherapist social worker is Dr. Shea. Continue Advair, continue Mucomyst nebulization, Acapella and incentive spirometry. We'll give a dose of Lasix today, recheck BMP tomorrow. CT scan lung abnormality- records reviewed, consolidation from CT scan in April 2016, result from chest x-ray during this hospitalization. CT scan of the chest as above. Constipation- continue Jane-Colace and MiraLAX. Hypertension - continue lisinopril, Vasotec as needed. Anxiety-continue Ativan as needed. ? Peripheral vascular disease-continue Plavix Lovenox for DVT prophylaxis Patient will eventually need home health care on discharge. Patient already has oxygen. Vance Henderson MD Sep 08, 2016 11:33
[2016-09-08] MEDS ORDERED: FUROSEMIDE 20 MG/2 ML VIAL IV PUSH ONE (11:45)
[2016-09-08] MEDS: ENOXAPARIN SODIUM 40 MG/0.4 ML SYRINGE SQ SCH (17:17)
--- NOTE | 2016-09-08 18:21 | HHI.PR ---
Subjective Remarks 60 YOWM with COPD, Bronchitis Feels weak Mild sob Cough with Sp Acapella helps No Fever Objective Vital Signs Vital Signs Date Time Temp Pulse Resp B/P Pulse Ox O2 Delivery O2 Flow Rate FiO2 09/08/16 16:00 97.1 90 18 134/72 98 09/08/16 12:00 97.5 94 20 136/79 97 09/08/16 10:46 94 Nasal Cannula 2.00 09/08/16 08:00 96.0 77 20 130/89 94 09/08/16 04:36 98.1 89 17 136/87 95 09/08/16 03:48 95 Nasal Cannula 4.00 09/08/16 00:23 97.4 89 17 162/100 93 09/07/16 20:30 97.9 88 19 154/85 94 09/07/16 20:11 94 Nasal Cannula 4.00 I/O 09/07/16 09/07/16 09/07/16 09/08/16 09/08/16 09/08/16 07:00 15:00 23:00 07:00 15:00 23:00 Intake Total 360 ml 720 ml Output Total 1900 ml 1700 ml 950 ml Balance -1900 ml 360 ml -1700 ml -230 ml Intake Oral 360 ml 720 ml Output Urine Total 1900 ml 1700 ml 950 ml Result Diagram: 09/05/16 0803 09/05/16 0806 Objective Remarks GENERAL: WBWN WM mild sob SKIN: Warm and dry. HEAD: Normocephalic. EYES: No scleral icterus. No injection or drainage. NECK: Supple, trachea midline. No JVD or lymphadenopathy. CARDIOVASCULAR: Regular rate and rhythm without murmurs, gallops, or rubs. RESPIRATORY: Breath sounds equal bilaterally. No accessory muscle use. GASTROINTESTINAL: Abdomen soft, non-tender, nondistended. MUSCULOSKELETAL: No cyanosis, or edema. BACK: Nontender without obvious deformity. No CVA tenderness. A/P Assessment and Plan COPD Exac Bronchitis S/P RULobectomy H/O PE,DVT PLAN: Aerosol nebs Cont Abx IV Solumedrol 02 two LNC Use Saw Mays MD Sep 08, 2016 18:21
[2016-09-09 00:05] VITALS: BP 142/95; PULSE 76; RESP 22; TEMP 95.8; O2SAT 95
[2016-09-09] MEDS: PIPERACIL-TAZO 4.5 GM PREMIX 100 ML IV SCH ×2 (00:28→05:24)
[2016-09-09] MEDS: ACETAMINOPHEN/HYDROcodone 325 MG/5 MG TAB PO PRN ×3 (00:44→10:41)
[2016-09-09] MEDS: guaiFENesin/CODEINE SYRUP 200 MG/20 MG/10 ML CUP PO PRN (02:16)
[2016-09-09 03:19] VITALS: O2SAT 95
[2016-09-09] MEDS: RESP: ALBUTEROL 2.5 MG/IPRATROPIUM 0.5 MG NEB (SCH) INH ×2 (03:19→10:20)
[2016-09-09 04:30] VITALS: BP 143/88; PULSE 96; RESP 18; TEMP 95.8; O2SAT 94
[2016-09-09] MEDS: methylPREDNISolone SOD SUCC 40 MG/1 ML VIAL IV SCH ×2 (05:23→10:41)
[2016-09-09 08:00] VITALS: BP 176/99; PULSE 91; RESP 18; TEMP 96; O2SAT 94
[2016-09-09] MEDS: CLOPIDOGREL 75 MG TAB PO SCH (08:19)
[2016-09-09] MEDS: LORazepam 1 MG TAB PO PRN (08:19)
[2016-09-09] MEDS: AZITHROMYCIN 250 MG TAB PO SCH (08:19)
[2016-09-09] MEDS: PANTOPRAZOLE SOD 20 MG DELAYED RELEASE TAB PO SCH (08:19)
[2016-09-09] MEDS: LISINOPRIL 20 MG TAB PO SCH (08:19)
[2016-09-09] MEDS: POLYETHYLENE GLYCOL 17 GM PKG PO SCH (08:21)
[2016-09-09] MEDS: DOCUSATE SODIUM 50 MG/SENNA 8.6 MG TAB PO SCH (08:21)
[2016-09-09] MEDS: TIOTROPIUM BROMIDE 18 MCG INH INH SCH (08:23)
[2016-09-09] MEDS: BUDESONIDE-FORMOTEROL 80/4.5 MCG INHALER INH SCH (08:23)
[2016-09-09] MEDS: SODIUM CHLORIDE 0.9% FLUSH 5 ML FLUSH IV FLUSH SCH (08:25)
[2016-09-09] MEDS ORDERED: PRED10 PO (08:48)
[2016-09-09] MEDS ORDERED: AUGM875T PO (08:48)
[2016-09-09] MEDS ORDERED: ADVA500A INH (08:48)
[2016-09-09] MEDS ORDERED: LISI40TA PO (08:48)
[2016-09-09] MEDS ORDERED: PRED20 PO (08:48)
[2016-09-09] MEDS ORDERED: PRED50 PO (08:48)
[2016-09-09] MEDS ORDERED: NEBUKIT5 (08:48)
[2016-09-09] MEDS ORDERED: IPRASOL INH (08:48)
[2016-09-09] MEDS ORDERED: GUAI100S5 PO (08:48)
--- NOTE | 2016-09-09 08:49 | HHI.DS ---
Discharge Summary Admission Date Sep 04, 2016 at 13:45 Discharge Date: Sep 09, 2016 Admitting Diagnosis Sepsis, Bronchitis (1) COPD (chronic obstructive pulmonary disease) ICD Code: J44.9 Diagnosis: Principal Procedures none Brief History - From Admission This is a 60-year-old male with history of hypertension, severe COPD on home oxygen, status post pneumonectomy in the past who has been in his usual state of health until 4 days ago when he started becoming short of breath, associated with cough productive with yellowish sputum and low-grade fever. Shortness of breath became so progressive and severe today despite using nebulizer treatment since the patient decided to go to the hospital. Patient denies any chest pain , palpitations, abdominal pain, nausea, vomiting, diarrhea, or lower extremity swelling. CBC/BMP: 09/05/16 0803 09/05/[address] Angiography 09/07/16 0000 Signed Impressions: Service Date/Time: Wednesday, September 07, 2016 13:43 - CONCLUSION: 1. No evidence of pulmonary embolus. 2. Status post right upper lobectomy. 3. Right apical cavity unchanged. 4. Old granulomatous disease. 5. Patchy atelectasis bilaterally. 6. Mucous/debris seen in the right lower lobe bronchus. Michele Ramirez MD Chest X-Ray 09/04/16 1135 Signed Impressions: Service Date/Time: Sunday, September 04, 2016 11:55 - CONCLUSION: No acute disease. No significant change has occurred. Ethan Rutherford MD PE at Discharge Not in distress, well-nourished, looks stated age PERRL, pink conjunctiva without injection, anicteric Nose without bleeding, airway patent, Normal rate and regular rhythm, no murmurs gallops or rubs appreciated. Decreased breath sounds bilaterally but no wheezing. Normal bowel sounds, soft, non-tender, nondistended, no guarding. Extremities without clubbing, cyanosis, or edema. No rash of generalized distribution. Skin is warm and dry. AAO x3, no cranial nerve deficits, moves all 4 extremities, no focal neurologic deficits Normal mood, appropriate affect Pt update on day of discharge Physical not better, almost back to normal. Still short of breath but no dyspnea on exertion. No fever or chills. Blood pressure elevated but no headache, nausea, vomiting or focal deficits. Hospital Course This is a 60-year-old male with history of COPD, hypertension on home oxygen admitted for shortness of breath for 4 days. Upon admission, the patient was found to be in COPD exacerbation secondary to pneumonia. Sputum culture was done which grew normal arpita. CT scan of the chest was unremarkable other than previous lobectomy, right apical cavity and granulomatous disease with patchy atelectasis. Patient was started empirically on intravenous steroids, Zosyn and azithromycin. Pulmonary was consulted. Patient was also placed on DuoNeb's , oxygen support, spirometry and Acapella. He was continued on Spiriva. Advair was increased. He also received a few doses of Mucomyst and Lasix. After several days, patient's respiratory status improved. He will be discharged on Augmentin. He finished a course of azithromycin. He will also be discharged with a prolonged taper of prednisone and will follow-up with pulmonary as outpatient. His high blood pressure increased while in the hospital, likely secondary to steroids. His lisinopril dose was increased and will follow up with primary care physician and pulmonary in 1 week Pt Condition on Discharge: Good Discharge Disposition: Discharge Home Discharge Time: > 30 minutes Discharge Instructions DIET: Follow Instructions for: Heart Healthy Diet Activities you can perform: Regular-No Restrictions Follow up Referrals: PCP Follow-up - 1 Week Pulmonology - 1 Week New Medications: Amoxicillin-Clavulanate (Augmentin) 875-125 mg Tab 875 MG PO BID not for use in CrCl <30 ml/min. Infection #6 Ref 0 TAB Fluticasone-Salmeterol Inh (Advair Diskus Inh) 500-50 Mcg/Blist Aer 1 PUFF INH BID Rinse mouth after use. COPD #1 Ref 0 INHALER Lisinopril (Lisinopril) 40 Mg Tab 40 MG PO DAILY Blood Pressure Management #30 Ref 0 TAB Nebulizer Kit/Tubing/Mout (Nebulizer Kit/Tubing/Mout) 1 Kit Kit 1 KIT .ROUTE DIRECTED Breathing Treatment #1 Ref 0 KIT Prednisone (Prednisone) 20 Mg Tab 40 MG PO DAILY Take 40 mg (2 tablets) daily for 5 days COPD #10 Ref 0 TAB Prednisone (Prednisone) 50 Mg Tab 50 MG PO BID Use from 09/09/16 up to 09/11/16 COPD #5 Ref 0 TAB Prednisone (Prednisone) 10 Mg Tab 10 MG PO DAILY Start09/12/16.Take 4 tabs BIDx 3 d,then 4 tabs OD x 5 d,3 tabs OD x 5d,2 tabs OD x 5d,1 tab OD x5d until seen by Carpet Cleaner. COPD #80 Ref 0 TAB Guaifenesin-Codeine Liq (Guaifenesin-Codeine Liq) 100-10 Mg/5 Ml Soln 10 ML PO Q4H PRN COUGH Days 14 ML Ipratropium-Albuterol Neb (Duoneb) 0.5-2.5 Mg/3 Ml Neb 1 AMPULE INH Q6HR NEB COPD #1 BOX Continued Medications: Albuterol 18 GM Inh (Ventolin Hfa 18 GM Inh) 90 Mcg/Act Aer 2 PUFF INH Q4H PRN SHORTNESS OF BREATH #1 Ref 0 INHALER Clopidogrel (Plavix) 75 Mg Tab 75 MG PO DAILY Blood Clot Prevention #30 Ref 0 TAB Hydrocodone-Acetaminophen (Hydrocodone-Acetaminophen) 5-325 mg Tab 1 TAB PO Q6H PRN PAIN Ref 0 TAB Lorazepam (Ativan) 1 Mg Tab 1 MG PO BID ANXIETY AND/OR AGITATION Ref 0 TAB Pantoprazole (Protonix) 20 Mg Tab 20 MG PO DAILY Reflux #30 Ref 0 TAB Tiotropium Inh (Spiriva Handihaler) 18 Mcg Cap 18 MCG INH DAILY 1 capsule = 18 mcg COPD #30 Ref 0 CAP Discontinued Medications: Fluticasone-Salmeterol Inh (Advair Diskus Inh) 100-50 Mcg/Blist Aer 1 PUFF INH BID Rinse mouth after use. #1 Ref 0 INHALER Levofloxacin (Levaquin) 500 Mg Tab 500 MG PO DAILY Infection Days 4 Ref 0 TAB Lisinopril (Lisinopril) 20 Mg Tab 20 MG PO DAILY #30 Ref 0 TAB Prednisone (Prednisone) 10 Mg Tab 10 MG PO DIRECTED 1 PO TID x 4 days 1 PO BID x 4 days then 1 PO daily x 4 days then stop. copd Days 12 Ref 0 TAB Vance Henderson MD Sep 09, 2016 08:49
[2016-09-09 10:11] LABS: BICARBONATE 28.1 MEQ/L (21.0-32.0); POTASSIUM 3.3 MEQ/L (3.5-5.1)
[2016-09-09] MEDS: RESP: ACETYLCYSTEINE 10% 30 ML NEB NEB SCH ×2 (10:20)
[2016-09-09 10:22] VITALS: O2SAT 95
== END 2016-09-09 11:24 | disposition home or self-care (01) | DRG 871 ==
LOC: NEPA 11:09 → NEDA 13:45 → N05B 20:42
PROVIDERS: ADMIT Hospitalist; ATTEND Hospitalist
DX: A41.9 Sepsis, unspecified organism (principal); J18.9 Pneumonia, unspecified organism; J84.10 Pulmonary fibrosis, unspecified; J44.0 Chronic obstructive pulmonary disease with (acute) lower respiratory infection; J44.1 Chronic obstructive pulmonary disease with (acute) exacerbation; Z99.81 Dependence on supplemental oxygen; I10 Essential (primary) hypertension; F41.9 Anxiety disorder, unspecified; I73.9 Peripheral vascular disease, unspecified; Z90.2 Acquired absence of lung [part of]; Z79.02 Long term (current) use of antithrombotics/antiplatelets; Z86.711 Personal history of pulmonary embolism; Z87.891 Personal history of nicotine dependence; K59.00 Constipation, unspecified
CPT/HCPCS: 71010; 71275; 80048; 80053; 81001; 83605; 83735; 84484; 85025; 85610; 85730; 87040; 87070; 87205; 87449; 87804; 93005; 94150; 94640; 94664; 94667; 94668; 96361; 96365; 96375; J0456; J1650; J1940; J2543; J2920; J2930; J3480; J7030; J7050; J7608; Q9967

== ENCOUNTER 2018-06-08 18:06 | Inpatient (IN) ==
[2018-06-08] MEDS ORDERED: MethylPREDNISolone Sod Succinate Inj 125 MG/2 ML Vial IV.PUSH ONE (18:19)
[2018-06-08] MEDS ORDERED: Magnesium Sulfate Inj 2 GM in Sodium Chlor 0.9% Inj 96 ML IV.SIG ONE (18:23)
[2018-06-08] MEDS ORDERED: Azithromycin Inj 500 MG in Sodium Chlor 0.9% Inj 250 ML IV.SIG ONE (18:28)
--- NOTE | 2018-06-08 18:28 | ED ---
HPI General Chief Complaint: Respiratory Symptoms Stated Complaint: SOB Time Seen by Provider: 06/08/18 18:18 Source: patient, RN notes reviewed and old records reviewed Mode of arrival: ambulatory Limitations: no limitations History of Present Illness 62 year old male with history of hypertension, severe COPD on home oxygen 2 L NC , status post pneumonectomy presents to the emergency department for evaluation of shortness of breath for 3 days. Patient states that he has a standing prescription for antibiotics and steroids at home which she started today. He states he took prednisone and doxycycline, but he started to late in his symptoms have become severe. Patient denies any chest pain. Moderate - Severe severity. MD Complaint: Reports shortness of breath Onset (ago): day(s) (3) Severity: moderate Consistency/Duration: constant Relieving factors: nothing Exacerbating factors: exertion Known history of: Reports COPD Associated symptoms: Reports wheezing; Denies chest pain, fever, nausea/vomiting , syncope and abdominal pain Treatment prior to arrival: Reports oxygen and bronchodilator Related Data Home Medications Medication Instructions Recorded Confirmed prednisone 20 mg PO DAILY 06/08/18 06/08/18 Allergies Allergy/AdvReac Type Severity Reaction Status Date / Time No Known Allergies Allergy Verified 06/08/18 18:22 Review of Systems ROS: all other systems reviewed are negative [facility] Medical History Medical History COPD (chronic obstructive pulmonary disease) (Acute) Carcinoma of nose (Acute) Surgical History Surgical History History of lung surgery (Acute) Social History Social History Substance History: No History of Abuse Second Hand Smoke Exposure: No Smoking Status: Former smoker Tobacco Type: Cigarettes How Often Do You Have a Drink Containing Alcohol: Never Recent Travel in [facility] within the Last 8 Weeks: No Recent Out of Country Travel within the Last 8 Weeks: No Exam Narrative Exam Narrative: GENERAL: Well-nourished, well-developed, afebrile. male patient. SKIN: Focused skin assessment warm/dry. HEAD: Normocephalic. Atraumatic EYES: No scleral icterus. No injection or drainage. NECK: Supple, trachea midline. No JVD or lymphadenopathy. CARDIOVASCULAR: Regular rate and rhythm without murmurs, gallops, or rubs. RESPIRATORY: Breath sounds equal bilaterally. Patient is using accessory muscles. Lung sounds diminished throughout GASTROINTESTINAL: Abdomen soft, non-tender, nondistended. MUSCULOSKELETAL: No cyanosis, or edema. BACK: Nontender without obvious deformity. No CVA tenderness. Course Initial Documented Vital Signs Temperature 98.7 F 06/08/18 18:10 Pulse Rate 105 H 06/08/18 18:10 Respiratory Rate 30 H 06/08/18 18:10 Blood Pressure 163/89 H 06/08/18 18:10 Pulse Oximetry 93 L 06/08/18 18:10 Last Documented Vital Signs Temperature 98.7 F 06/08/18 18:10 Pulse Rate 102 H 06/08/18 18:42 Respiratory Rate 18 06/08/18 18:42 Blood Pressure 163/89 H 06/08/18 18:10 Pulse Oximetry 96 06/08/18 18:19 Medical Decision Making MDM Narrative Medical decision making narrative: 62 year old male presents to the emergency department for evaluation of SOB with h/o COPD. IV access is obtained. EKG, CBC, CMP, Magnesium, CK, Troponin, PTT, PT/INR, lactic acid, blood cultures x 2 , chest x-ray are ordered and pending. Patient is given duoneb x3, Solumedrol 125 mg IV, Magnesium 2 gm IV. EKG shows SR, HR 98. CBC shows normal WBC of 5.9 with neutrophils 94.4. CMP shows hyponatremia of 129, hyperglycemia of 171. Lactic acid is 2.2. CK is 68. Troponin is less. Magnesium is 1.6. PTT is 30.4. PT/INR is 10.2/1.0. Chest x-ray shows Chronic findings on the right as described. No acute cardiopulmonary disease demonstrated. Patient is given azithromycin 500 mg IV, Rocephin 1 g IV. Patient is admitted for COPD exacerbation. Medical Screen Exam Complete: Yes Emergency Medical Condition: Yes Differential Diagnosis Differential Diagnosis: COPD exacerbation vs. pneumonia vs. PE vs. ACS Medical Records Medical records reviewed: Yes I reviewed the patient's medical records. Lab Data Result diagrams: 06/08/18 18:30 06/08/18 18:30 Lab Results 06/08/18 06/08/18 06/08/18 Range/Units 18:30 18:30 18:30 WBC 5.9 (4.0-11.0) th/mm3 RBC 4.47 L (4.50-5.90) mil/mm3 Hgb 14.1 (13.0-17.0) gm/dL Hct 40.9 (39.0-51.0) % MCV 91.5 (80.0-100.0) fL MCH 31.5 (27.0-34.0) pg MCHC 34.5 (32.0-36.0) % RDW 12.9 (11.6-17.2) % Plt Count 229 (150-450) th/mm3 MPV 7.2 (7.0-11.0) fL Neut % (Auto) 94.4 H (16.0-70.0) % Lymph % (Auto) 4.3 L (9.0-44.0) % Imperial % (Auto) 1.1 (0.0-8.0) % Eos % (Auto) 0.0 (0.0-4.0) % Baso % (Auto) 0.2 (0.0-2.0) % Neut # (Auto) 5.6 (1.8-7.7) th/mm3 Lymph # (Auto) 0.3 L (1.0-4.8) th/mm3 Imperial # (Auto) 0.1 (0.0-0.9) th/mm3 Eos # (Auto) 0.0 (0.0-0.4) th/mm3 Baso # (Auto) 0.0 (0.0-0.2) th/mm3 WBC Differential . Differential Comment Auto diff final PT 10.2 (9.8-11.6) sec INR 1.0 Ratio APTT 30.4 (23.4-31.7) sec Puncture Site Patient Temperature O2 Saturation (90-100) % ABG pH (7.380-7.420) ABG pCO2 (38-42) mmHg ABG pO2 (61-120) mmHg ABG HCO3 (22-26) mmol/L ABG O2 Content (12.0-20.0) Vol % ABG Base Excess (-2-2) mmol/L ABG Methemoglobin (0-2) % Matt Test Hemoglobin (12.0-16.0) G/DL Carboxyhemoglobin (0-4) % O2 Delivery Device Liter Flow L/M Critical Value Sodium 129 L (136-145) meq/L Potassium 4.7 (3.5-5.1) meq/L Chloride 96 L (98-107) meq/L Carbon Dioxide 24.3 (21.0-32.0) meq/L Anion Gap 9 (5-15) meq/L BUN 7 (7-18) mg/dL Creatinine 0.94 (0.60-1.30) mg/dL Estimated GFR 81 L (>89) mL/min Random Glucose 171 H (74-106) mg/dL Lactic Acid (0.4-2.0) mmol/L Calcium 8.8 (8.5-10.1) mg/dL Magnesium 1.6 (1.5-2.5) mg/dL Total Bilirubin 0.7 (0.2-1.0) mg/dL AST 26 (15-37) U/L ALT 28 (12-78) U/L Alkaline Phosphatase 82 (45-117) U/L Total Creatine Kinase 68 (39-308) U/L Troponin I Less than 0.02 L (0.02-0.05) ng/mL Total Protein 7.5 (6.4-8.2) g/dL Albumin 3.7 (3.4-5.0) g/dL 06/08/18 06/08/18 Range/Units 18:30 18:44 WBC (4.0-11.0) th/mm3 RBC (4.50-5.90) mil/mm3 Hgb (13.0-17.0) gm/dL Hct (39.0-51.0) % MCV (80.0-100.0) fL MCH (27.0-34.0) pg MCHC (32.0-36.0) % RDW (11.6-17.2) % Plt Count (150-450) th/mm3 MPV (7.0-11.0) fL Neut % (Auto) (16.0-70.0) % Lymph % (Auto) (9.0-44.0) % Imperial % (Auto) (0.0-8.0) % Eos % (Auto) (0.0-4.0) % Baso % (Auto) (0.0-2.0) % Neut # (Auto) (1.8-7.7) th/mm3 Lymph # (Auto) (1.0-4.8) th/mm3 Imperial # (Auto) (0.0-0.9) th/mm3 Eos # (Auto) (0.0-0.4) th/mm3 Baso # (Auto) (0.0-0.2) th/mm3 WBC Differential Differential Comment PT (9.8-11.6) sec INR Ratio APTT (23.4-31.7) sec Puncture Site Right radial Patient Temperature 98.6 O2 Saturation 94 (90-100) % ABG pH 7.44 H (7.380-7.420) ABG pCO2 32 L (38-42) mmHg ABG pO2 81 (61-120) mmHg ABG HCO3 21 L (22-26) mmol/L ABG O2 Content 18.5 (12.0-20.0) Vol % ABG Base Excess -2.5 L (-2-2) mmol/L ABG Methemoglobin 0.7 (0-2) % Matt Test Present Hemoglobin 13.9 (12.0-16.0) G/DL Carboxyhemoglobin 1.5 (0-4) % O2 Delivery Device Nasal cannula Liter Flow 3.00 L/M Critical Value No Sodium (136-145) meq/L Potassium (3.5-5.1) meq/L Chloride (98-107) meq/L Carbon Dioxide (21.0-32.0) meq/L Anion Gap (5-15) meq/L BUN (7-18) mg/dL Creatinine (0.60-1.30) mg/dL Estimated GFR (>89) mL/min Random Glucose (74-106) mg/dL Lactic Acid 2.2 H (0.4-2.0) mmol/L Calcium (8.5-10.1) mg/dL Magnesium (1.5-2.5) mg/dL Total Bilirubin (0.2-1.0) mg/dL AST (15-37) U/L ALT (12-78) U/L Alkaline Phosphatase (45-117) U/L Total Creatine Kinase (39-308) U/L Troponin I (0.02-0.05) ng/mL Total Protein (6.4-8.2) g/dL Albumin (3.4-5.0) g/dL Imaging Data Radiologist's impression: Chest X-Ray 06/08/18 18:19 CONCLUSION: Chronic findings on the right as described. No acute cardiopulmonary disease demonstrated. Discharge Plan Discharge Disposition Patient Disposition: 30 Still Patient Discharge Details Diagnosis: Acute exacerbation of chronic obstructive pulmonary disease (COPD) Physicians Team ED Provider: Cary Lamas ED Midlevel Provider: Violette Muniz Primary Care Provider: Kody Giang Attending Provider: Kemar Corley Rxs /Orders / Referrals /Forms Prescriptions: No Action prednisone 20 mg Tablet 20 mg PO DAILY RF: 0 Status ED Status: With Doctor
--- NOTE | 2018-06-08 18:41 | XR ---
EXAM DATE: 06/08/2018 6:34 PM EST AGE/SEX: 62 years / Male INDICATIONS: Shortness of breath. CLINICAL DATA: This is the patient's initial encounter. Patient reports that signs and symptoms have been present for 3 days and indicates a pain score of 0/10. MEDICAL/SURGICAL HISTORY: Chronic obstructive pulmonary disease. Hypertension. Emphysema. . R ight upper lobectomy. COMPARISON: [facility] [place], CHEST SINGLE AP, 09/04/2016. . FINDINGS: Surgical changes with scarring and volume loss again noted on the right. There is stable apical cavit radha change. Left lung is clear. No pneumothorax on either side. Heart size stable, within normal limits. CONCLUSION: Chronic findings on the right as described. No acute cardiopulmonary disease demonstrated. Electronically signed by: Inderjit Rm MD 06/08/2018 6:39 PM EST
[2018-06-08 18:46] LABS: Baso % (Auto) 0.2 % (0.0-2.0); Hematocrit 40.9 % (39.0-51.0); Hemoglobin 14.1 gm/dL (13.0-17.0); Lymph # (Auto) 0.3 th/mm3 (1.0-4.8); Lymph % (Auto) 4.3 % (9.0-44.0); Mean Corpuscular HGB Conc 34.5 % (32.0-36.0); Mean Corpuscular Hemoglobin 31.5 pg (27.0-34.0); Mean Corpuscular Volume 91.5 fL (80.0-100.0); Mean Platelet Volume 7.2 fL (7.0-11.0); Mono # (Auto) 0.1 th/mm3 (0.0-0.9); Mono % (Auto) 1.1 % (0.0-8.0); Neut # (Auto) 5.6 th/mm3 (1.8-7.7); Neut % (Auto) 94.4 % (16.0-70.0); Platelet Count 229 th/mm3 (150-450); Red Blood Count 4.47 mil/mm3 (4.50-5.90); Red Cell Distribution Width 12.9 % (11.6-17.2); White Blood Count 5.9 th/mm3 (4.0-11.0)
[2018-06-08 18:49] LABS: ABG Base Excess -2.5 mmol/L (-2-2); ABG PCO2 32 mmHg (38-42); ABG PO2 81 mmHg (61-120)
[2018-06-08 18:55] LABS: Activated Partial Thrombo Time 30.4 sec (23.4-31.7); Prothrombin Time 10.2 sec (9.8-11.6)
[2018-06-08 19:10] LABS: Alanine Aminotransferase 28 U/L (12-78); Albumin 3.7 g/dL (3.4-5.0); Anion Gap 9 meq/L (5-15); Aspartate Aminotransferase 26 U/L (15-37); Blood Urea Nitrogen 7 mg/dL (7-18); Calcium 8.8 mg/dL (8.5-10.1); Carbon Dioxide 24.3 meq/L (21.0-32.0); Chloride 96 meq/L (98-107); Glomerular Filtration Rate 81 mL/min (>89); Glucose,Random 171 mg/dL (74-106); Magnesium 1.6 mg/dL (1.5-2.5); Potassium 4.7 meq/L (3.5-5.1); Sodium 129 meq/L (136-145)
[2018-06-08 19:14] LABS: Alkaline Phosphatase 82 U/L (45-117); Total Protein 7.5 g/dL (6.4-8.2)
[2018-06-08] MEDS ORDERED: Sod Chloride 0.9% Inj 1,000 ML IV.SIG ONE (19:14)
[2018-06-08 20:07] LABS: Creatine Kinase 68 U/L (39-308)
[2018-06-08] MEDS ORDERED: Bisacodyl 10 MG Supp RECTAL PRN (20:32)
--- NOTE | 2018-06-08 20:39 | P.HP ---
History of Present Illness Service: [facility] Primary Care Physician: Kody Giang MD Chief Complaint: Increasing shortness of breath with known history of COPD History of Present Illness: 62 year old male with history of hypertension, severe COPD on home oxygen 2 L NC , status post pneumonectomy presents to the emergency department for evaluation of shortness of breath for 3 days. Patient states that he has a standing prescription for antibiotics and steroids at home which she started today. He states he took prednisone and doxycycline, but he started to late in his symptoms have become severe. Patient denies any chest pain. Despite treatment in ER continued SOB ,will admit for exacerbation COPD. - Diagnosis (1) Acute exacerbation of chronic obstructive pulmonary disease (COPD) Review of Systems All other systems reviewed negative except as stated in HPI [facility] - History History Provided By: Patient - Medical History Medical History: Medical History (Last Reviewed 06/08/18 @ 20:36 by Kemar Corley MD) COPD (chronic obstructive pulmonary disease) Carcinoma of nose - Surgical History Surgical History: Surgical History (Last Reviewed 06/08/18 @ 20:36 by Kemar Corley MD) History of lung surgery - Tobacco History Second Hand Smoke Exposure: No Tobacco Use In Past 30 Days: No Smoking Status: Former smoker Tobacco Type: Cigarettes - Alcohol History How Often Do You Have a Drink Containing Alcohol: Never - Substance Use History Substance History: No History of Abuse - Travel History Recent Travel in the [place] Within the Last 8 Weeks: No Recent Travel Out of the Country Within the Last 8 Weeks: No - Immunization History Tetanus Immunization: >5 Years Medications and Allergies Active Medications: Active Medications Hydrocodone Bitart/Acetaminophen ([place] 7.5/325) 1 tab PO Q8H PRN PRN Reason: PAIN SCALE 6 TO 10 Albuterol (Duoneb Neb (Bryan)) 1 ampul NEB Q6HR NEB BRYAN Ceftriaxone Sodium 1,000 mg/ (Sodium Chloride) 100 mls @ 200 mls/hr IV.SIG Q24H BRYAN Azithromycin 500 mg/ Sodium (Chloride) 250 mls @ 250 mls/hr IV.SIG Q24H BRYAN Lisinopril (Prinivil) 20 mg PO DAILY BRYAN Lorazepam (Ativan) 1 mg PO Q8H PRN PRN Reason: ANXIETY Methylprednisolone Sodium Succinate (Solumedrol Inj) 60 mg IV.PUSH Q6H BRYAN Pantoprazole Sodium (Protonix) 40 mg PO DAILY BRYAN Allergies Allergy/AdvReac Type Severity Reaction Status Date / Time No Known Allergies Allergy Verified 06/08/18 18:22 Home Medications Medication Instructions Recorded Confirmed Type prednisone 20 mg PO DAILY 06/08/18 06/08/18 History Exam Vital signs: Vital Signs 06/08/18 18:10 06/08/18 18:19 06/08/18 18:42 Temperature 98.7 F Pulse Rate 105 H 106 H 102 H Respiratory Rate 30 H 18 Blood Pressure 163/89 H Pulse Oximetry 93 L 96 Intake & Output 06/08/18 06/08/18 06/09/18 06:59 18:59 06:59 Intake Total 100 / 100 Balance 100 / 100 Weight 81.647 kg Intake: IV 100 / 100 Rocephin Inj 1,000 MG In NS Inj 100 / 100 100 ML @ 200 mls/hr IV.SIG ONCE ONE Rx#:[id number] Narrative: GENERAL: SKIN: Warm and dry. HEAD: Normocephalic. EYES: No scleral icterus. No injection or drainage. NECK: Supple, trachea midline. No JVD or lymphadenopathy. CARDIOVASCULAR: Regular rate and rhythm without murmurs, gallops, or rubs. RESPIRATORY: Breath sounds decreased with bilateral rhonchi GASTROINTESTINAL: Abdomen soft, non-tender, nondistended. MUSCULOSKELETAL: No cyanosis, or edema. BACK: Nontender without obvious deformity. No CVA tenderness. Results - Labs CBC & Chem 7: 06/08/18 18:30 06/08/18 18:30 Labs: Laboratory Results - last 24 hr 06/08/18 06/08/18 06/08/18 18:30 18:30 18:30 WBC 5.9 RBC 4.47 L Hgb 14.1 Hct 40.9 MCV 91.5 MCH 31.5 MCHC 34.5 RDW 12.9 Plt Count 229 MPV 7.2 Neut % (Auto) 94.4 H Lymph % (Auto) 4.3 L Cocke % (Auto) 1.1 Eos % (Auto) 0.0 Baso % (Auto) 0.2 Neut # (Auto) 5.6 Lymph # (Auto) 0.3 L Cocke # (Auto) 0.1 Eos # (Auto) 0.0 Baso # (Auto) 0.0 WBC Differential . Differential Comment Auto diff final PT 10.2 INR 1.0 APTT 30.4 Puncture Site Patient Temperature O2 Saturation ABG pH ABG pCO2 ABG pO2 ABG HCO3 ABG O2 Content ABG Base Excess ABG Methemoglobin Matt Test Hemoglobin Carboxyhemoglobin O2 Delivery Device Liter Flow Critical Value Sodium 129 L Potassium 4.7 Chloride 96 L Carbon Dioxide 24.3 Anion Gap 9 BUN 7 Creatinine 0.94 Estimated GFR 81 L Random Glucose 171 H Lactic Acid Calcium 8.8 Magnesium 1.6 Total Bilirubin 0.7 AST 26 ALT 28 Alkaline Phosphatase 82 Total Creatine Kinase 68 Troponin I Less than 0.02 L Total Protein 7.5 Albumin 3.7 06/08/18 06/08/18 18:30 18:44 WBC RBC Hgb Hct MCV MCH MCHC RDW Plt Count MPV Neut % (Auto) Lymph % (Auto) Cocke % (Auto) Eos % (Auto) Baso % (Auto) Neut # (Auto) Lymph # (Auto) Cocke # (Auto) Eos # (Auto) Baso # (Auto) WBC Differential Differential Comment PT INR APTT Puncture Site Right radial Patient Temperature 98.6 O2 Saturation 94 ABG pH 7.44 H ABG pCO2 32 L ABG pO2 81 ABG HCO3 21 L ABG O2 Content 18.5 ABG Base Excess -2.5 L ABG Methemoglobin 0.7 Matt Test Present Hemoglobin 13.9 Carboxyhemoglobin 1.5 O2 Delivery Device Nasal cannula Liter Flow 3.00 Critical Value No Sodium Potassium Chloride Carbon Dioxide Anion Gap BUN Creatinine Estimated GFR Random Glucose Lactic Acid 2.2 H Calcium Magnesium Total Bilirubin AST ALT Alkaline Phosphatase Total Creatine Kinase Troponin I Total Protein Albumin - Imaging Impressions Chest X-Ray 06/08/18 18:19 CONCLUSION: Chronic findings on the right as described. No acute cardiopulmonary disease demonstrated. Caprini VTE Risk Assessment Caprini VTE Risk Assessment: Moderate/High Risk (score >= 2) Caprini Risk Assessment Model: Point Value = 1 Point Value = 2 Point Value = 3 Point Value = 5 Age 41-60 Minor surgery BMI > 25 kg/m2 Swollen legs Varicose veins or History of unexplained or recurrent spontaneous Oral contraceptives or hormone replacement Sepsis (< 1 month) Serious lung disease, including pneumonia (< 1 month) Abnormal pulmonary function Acute myocardial infarction Congestive heart failure (< 1 month) History of inflammatory bowel disease Medical patient at bed rest Age 61-74 Arthroscopic surgery Major open surgery (> 45 min) Laparoscopic surgery (> 45 min) Malignancy Confined to bed (> 72 hours) Immobilizing plaster cast Central venous access Age >= 75 History of VTE Family history of VTE Factor V Leiden Prothrombin [id number] Lupus anticoagulant Anticardiolipin antibodies Elevated serum homocysteine Heparin-induced thrombocytopenia Other congenital or acquired thrombophilia Stroke (< 1 month) Elective arthroplasty Hip, pelvis, or leg fracture Acute spinal cord injury (< 1 month) Prophylaxis Regimen: Total Risk Factor Score Risk Level Prophylaxis Regimen 0-1 Low Early ambulation 2 Moderate Order ONE of the following: *Sequential Compression Device (SCD) *Heparin 5000 units SQ BID 3-4 Higher Order ONE of the following medications: *Heparin 5000 units SQ TID *Enoxaparin/Lovenox 40 mg SQ daily (WT < 150 kg, CrCl > 30 mL/min) *Enoxaparin/Lovenox 30 mg SQ daily (WT < 150 kg, CrCl > 10-29 mL/min) *Enoxaparin/Lovenox 30 mg SQ BID (WT < 150 kg, CrCl > 30 mL/min) AND/OR *Sequential Compression Device (SCD) 5 or more Highest Order ONE of the following medications: *Heparin 5000 units SQ TID (Preferred with Epidurals) *Enoxaparin/Lovenox 40 mg SQ daily (WT < 150 kg, CrCl > 30 mL/min) *Enoxaparin/Lovenox 30 mg SQ daily (WT < 150 kg, CrCl > 10-29 mL/min) *Enoxaparin/Lovenox 30 mg SQ BID (WT < 150 kg, CrCl > 30 mL/min) AND *Sequential Compression Device (SCD) Assessment and Plan - Assessment (1) Acute exacerbation of chronic obstructive pulmonary disease (COPD) Code(s): J44.1 - Chronic obstructive pulmonary disease with (acute) exacerbation Status: Acute Plan: Will place on duo nebulizer every 6 Solu-Medrol 60, every 6, Rocephin and Zithromax - Plan Further plan as case develops continue his home medicines which have been placed he takes hydrocodone for chronic knee pain and lorazepam for chronic anxiety Code Status: Full Discussed Condition With: Patient
[2018-06-08] MEDS: Enoxaparin Inj 30 MG/0.3 ML Syringe SQ SCH (20:55)
[2018-06-08] MEDS: Senna/Docusate Sodium 8.6/50 MG Tablet PO SCH (22:57)
[2018-06-08] MEDS: LORazepam 1 MG Tablet PO PRN (23:02)
[2018-06-08] MEDS: MethylPREDNISolone Sod Succinate Inj 125 MG/2 ML Vial IV.PUSH SCH (23:06)
[2018-06-09 05:53] LABS: Baso % (Auto) 0.1 % (0.0-2.0); Hematocrit 39.8 % (39.0-51.0); Hemoglobin 13.9 gm/dL (13.0-17.0); Lymph # (Auto) 0.3 th/mm3 (1.0-4.8); Lymph % (Auto) 7.6 % (9.0-44.0); Mean Corpuscular Hemoglobin 32.3 pg (27.0-34.0); Mean Corpuscular Volume 92.3 fL (80.0-100.0); Mean Platelet Volume 7.4 fL (7.0-11.0); Mono % (Auto) 0.8 % (0.0-8.0); Neut # (Auto) 3.8 th/mm3 (1.8-7.7); Neut % (Auto) 91.5 % (16.0-70.0); Platelet Count 227 th/mm3 (150-450); Red Blood Count 4.31 mil/mm3 (4.50-5.90); Red Cell Distribution Width 13.5 % (11.6-17.2); White Blood Count 4.2 th/mm3 (4.0-11.0)
[2018-06-09] MEDS: MethylPREDNISolone Sod Succinate Inj 125 MG/2 ML Vial IV.PUSH SCH ×3 (06:01→17:59)
[2018-06-09 06:03] LABS: Anion Gap 12 meq/L (5-15); Blood Urea Nitrogen 6 mg/dL (7-18); Calcium 8.4 mg/dL (8.5-10.1); Carbon Dioxide 21.9 meq/L (21.0-32.0); Chloride 99 meq/L (98-107); Glomerular Filtration Rate Greater Than 89 mL/min (>89); Glucose,Random 153 mg/dL (74-106); Potassium 4.1 meq/L (3.5-5.1); Sodium 133 meq/L (136-145)
[2018-06-09] MEDS: Senna/Docusate Sodium 8.6/50 MG Tablet PO SCH ×2 (08:45→20:56)
[2018-06-09] MEDS: Lisinopril 20 MG Tablet PO SCH (08:46)
[2018-06-09] MEDS: LORazepam 1 MG Tablet PO PRN ×2 (08:50→18:20)
[2018-06-09] MEDS ORDERED: PHENYLEPHRINE PO PRN (16:56)
[2018-06-09] MEDS ORDERED: PROMETHAZINE PO PRN (16:56)
--- NOTE | 2018-06-09 16:59 | P.PNIM ---
Subjective Interval history: less SOB from admission still with harsh paroxysmal coughing fits Physical Exam Vital signs: Last Vital Signs Temp 97.8 F 06/09/18 12:00 Pulse 105 H 06/09/18 16:12 Resp 18 06/09/18 16:12 BP 147/75 H 06/09/18 12:00 Pulse Ox 93 L 06/09/18 12:00 Intake & Output 06/07/18 06/08/18 06/09/18 06/10/18 07:59 06:59 06:59 06:59 Intake Total 1450 / 1450 Output Total 1050 / 1050 975 / 975 Balance 400 / 400 -975 / -975 Weight 81.647 kg Narrative: GENERAL: SKIN: Warm and dry. HEAD: Normocephalic. EYES: No scleral icterus. No injection or drainage. NECK: Supple, trachea midline. No JVD or lymphadenopathy. CARDIOVASCULAR: Regular rate and rhythm without murmurs, gallops, or rubs. RESPIRATORY: Breath sounds decreased with bilateral rhonchi GASTROINTESTINAL: Abdomen soft, non-tender, nondistended. MUSCULOSKELETAL: No cyanosis, or edema. BACK: Nontender without obvious deformity. No CVA tenderness. Results Labs CBC & Chem 7: 06/09/18 04:54 06/09/18 04:47 Labs: Microbiology 06/08/18 18:20 Blood - Peripheral Aerobic Blood Culture - Preliminary No growth in 1 day 06/08/18 18:20 Blood - Peripheral Anaerobic Blood Culture - Preliminary No growth in 1 day 06/08/18 18:30 Blood - Peripheral Aerobic Blood Culture - Preliminary No growth in 1 day 06/08/18 18:30 Blood - Peripheral Anaerobic Blood Culture - Preliminary No growth in 1 day Imaging Imaging: Impressions Chest X-Ray 06/08/18 18:19 CONCLUSION: Chronic findings on the right as described. No acute cardiopulmonary disease demonstrated. Assessment and Plan (1) Acute exacerbation of chronic obstructive pulmonary disease (COPD): Code(s): J44.1 - Chronic obstructive pulmonary disease with (acute) exacerbation Status: Acute - IV solumedrol q6h - duonebs q6h - rocepin & azithromycin - supportive care - DVT prophylaxis
[2018-06-09] MEDS: Montelukast 10 MG Tablet PO SCH (17:59)
[2018-06-09] MEDS: guaiFENesin/Codeine Syrup 200 MG/20 MG 10 ML UDC PO PRN ×2 (18:20→23:01)
[2018-06-09] MEDS: Azithromycin Inj 500 MG in Sodium Chlor 0.9% Inj 250 ML IV.SIG SCH (20:48)
[2018-06-09] MEDS: Enoxaparin Inj 30 MG/0.3 ML Syringe SQ SCH (20:56)
--- NOTE | 2018-06-09 21:23 | ECG ---
Date Performed: 06/08/2018 Time Performed: 18:47:21 PTAGE: 62 years EKG: Sinus rhythm LEFT ANTERIOR FASCICULAR BLOCK ABNORMAL ECG PREVIOUS TRACING : 09/04/2016 11.19 Compared to previous tracing, rate slower DOCTOR: Eric Armenta Interpretating Date/Time 06/09/2018 21:21:57
[2018-06-10] MEDS: guaiFENesin/Codeine Syrup 200 MG/20 MG 10 ML UDC PO PRN ×3 (04:59→20:41)
[2018-06-10] MEDS: MethylPREDNISolone Sod Succinate Inj 125 MG/2 ML Vial IV.PUSH SCH ×2 (05:00→18:09)
[2018-06-10] MEDS: LORazepam 1 MG Tablet PO PRN ×3 (05:56→22:54)
[2018-06-10] MEDS: Lisinopril 20 MG Tablet PO SCH (08:22)
[2018-06-10] MEDS: Senna/Docusate Sodium 8.6/50 MG Tablet PO SCH ×2 (08:22→20:42)
[2018-06-10] MEDS: Montelukast 10 MG Tablet PO SCH (08:22)
--- NOTE | 2018-06-10 17:49 | P.PNIM ---
Subjective Interval history: Pt is feeling better and was able to ambulate to the bathroom without too much difficulty He is on 2L of supplemental O2 chronically. Physical Exam Vital signs: Last Vital Signs Temp 97.1 F L 06/10/18 16:00 Pulse 97 H 06/10/18 16:00 Resp 18 06/10/18 16:00 BP 148/74 H 06/10/18 16:00 Pulse Ox 94 L 06/10/18 16:00 Narrative: General: NAD, AAOx3 Chest: No wheezing Cardiac: Regular Abd: +BS, soft ND/NT Ext: No edema Results Labs CBC & Chem 7: 06/09/18 04:54 06/09/18 04:47 Imaging Chest X-Ray 06/08/18 18:19 CONCLUSION: Chronic findings on the right as described. No acute cardiopulmonary disease demonstrated. Assessment and Plan Assessment (1) Acute exacerbation of chronic obstructive pulmonary disease (COPD): Code(s): J44.1 - Chronic obstructive pulmonary disease with (acute) exacerbation Status: Acute Plan Severe COPD - Pt is a 62 y/o male with hypertension and severe COPD on home oxygen 2L via NC , s/p pneumonectomy who presented to the ED at [facility] [place] on 06/08/18 for evaluation of shortness of breath for 3 days. Patient states that he has a standing prescription for antibiotics and steroids at home which he started on the day of admission. He states he took prednisone and doxycycline, but he started them too late and his symptoms had become too severe to manage at home. - pt was started on IV Solu-Medrol and Scheduled duonebs with improvement in his symptoms. - The Solu-Medrol was decreased to Q12H dosing on 06/09/18 and we will change him to oral prednisone on 06/11/18 with a prolonged taper of 30mg BID x 5 days -- > 20mg BID x 5 days --> 20mg daily x 5 days --> 10mg daily x 5 days--> stop - He will continue scheduled Duoneb treatments Q6H for the 3 days following discharge and then can be used as needed. - He will complete 5 more days of Azithromycin 500mg po daily upon discharge. - Pt has a followup appt scheduled on 06/17/18, with his PCP, Dr. Giang, for re-evaluation.
[2018-06-10] MEDS: Azithromycin Inj 500 MG in Sodium Chlor 0.9% Inj 250 ML IV.SIG SCH (20:25)
[2018-06-10] MEDS: Enoxaparin Inj 30 MG/0.3 ML Syringe SQ SCH (20:26)
[2018-06-11 08:18] VITALS: PULSE 84; RESP 16; O2SAT 96
[2018-06-11] MEDS: LORazepam 1 MG Tablet PO PRN (08:41)
[2018-06-11] MEDS: Montelukast 10 MG Tablet PO SCH (08:41)
[2018-06-11] MEDS: Lisinopril 20 MG Tablet PO SCH (08:42)
[2018-06-11 09:00] VITALS: BP 169/83; TEMP 97.2
[2018-06-11] MEDS ORDERED: predniSONE 10 MG Tablet PO SCH (09:00)
== END 2018-06-11 10:15 | disposition home or self-care (01) ==
LOC: SUPCPDRO → NEPC 18:06 → NEDA 18:06 → N05 22:27
PROVIDERS: ADMIT Hospitalist; ATTEND Hospitalist

== ENCOUNTER 2018-09-26 15:07 | Inpatient (IN) ==
--- NOTE | 2018-09-26 16:00 | ED ---
HPI General Chief Complaint: Respiratory Symptoms Stated Complaint: Respiratory Time Seen by Provider: 09/26/18 15:21 Source: patient Mode of arrival: ambulatory (friend drove him here) Limitations: no limitations History of Present Illness Mr Lizama is a 63 year old male who presents to the emergency department today with worsening shortness of breath and cough x 3 days. Patient has a known history of HTN and severe COPD, he is on home O2, 2L. Pt states he has been experiencing worsening shortness of breath and cough productive of green/yellow/ brown sputum for the last 3 days. Home albuterol and prednisone 90mg prescribed by his provider Dr. Shea have failed to ameliorate his symptoms. Patient is unaware of whether he has had any fevers, however he does complain of feeling warm and experiencing hot flashes. Pertinent surgical history includes a pneumonectomy of the right apical lung lobe in 2013, at which time pt reports a fungal infection was found. MD Complaint: Reports shortness of breath and cough Onset (ago): day(s) (3) Severity: severe Consistency/Duration: progressively worsening Relieving factors: oxygen Known history of: Reports COPD and other (HTN) Associated symptoms: Reports pain with inspiration, cough, sputum production ( yellow/green/brown) and chest congestion; Denies nausea/vomiting and syncope Related Data Home oxygen amount: 2 liters Home Medications Medication Instructions Recorded Confirmed albuterol sulfate [Ventolin HFA] 2 puff INHALATION Q4-6H PRN 06/10/18 09/26/18 hydrocodone-acetaminophen 1 tab PO TID PRN 06/10/18 09/26/18 lisinopril 20 mg PO BID 06/10/18 09/26/18 loratadine 10 mg PO DAILY 06/10/18 09/26/18 lorazepam 1 mg PO TID PRN 06/10/18 09/26/18 montelukast 10 mg PO QPM 06/10/18 09/26/18 pantoprazole 40 mg PO DAILY 06/10/18 09/26/18 thiamine HCl (vitamin B1) 100 mg PO DAILY 06/10/18 09/26/18 umeclidinium [Incruse Ellipta] 1 inh INHALATION Q24H 06/10/18 09/26/18 fluticasone-vilanterol [Breo 1 inh INHALATION DAILY 09/26/18 09/26/18 Ellipta] Previous Rx's Medication Instructions Recorded ipratropium-albuterol 3 ml INHALATION Q6H 30 Days #3 ml 06/10/18 prednisone 30 mg PO DIRECTED #65 tab 06/10/18 Allergies Allergy/AdvReac Type Severity Reaction Status Date / Time No Known Allergies Allergy Verified 09/26/18 15:24 Review of Systems ROS: all other systems reviewed are negative PMFSH History History Provided By: Patient Medical History Medical History Basal cell carcinoma of neck (Acute) COPD (chronic obstructive pulmonary disease) (Acute) Carcinoma of nose (Acute) Surgical History Surgical History History of lung surgery (Acute) Social History Social History Substance History: No History of Abuse Second Hand Smoke Exposure: No Smoking Status: Former smoker Tobacco Type: Cigarettes How Often Do You Have a Drink Containing Alcohol: 4 or more times a week Recent Travel in [facility] within the Last 8 Weeks: No Recent Out of Country Travel within the Last 8 Weeks: No Exam Const General: cooperative, acute distress respiratory and ill appearing Nutritional Appearance: average body habitus Orientation: alert and oriented x3 HENMT Head: normocephalic and atraumatic Mouth: moist mucous membranes abnormal Eyes General: appearance normal, both eyes and all related structures Neck Neck: normal visual inspection Resp Effort & Inspection: not able to speak in complete sentences, abnormal respiratory pattern, cough Quality of cough: wet, labored, respiratory distress , tachypneic and symmetric chest movement Auscultation: no crackles, rhonchi (bilaterally, throughout) and wheezes ( bilaterally, throughout) Cardio Rate: tachycardic Heart Sounds: S1 normal, S2 normal, no gallops and no murmurs Back/Spine/Pelvis Cervical Spine: normal cervical lordosis Skin General: no rashes or lesions noted Extrem General: normal to inspection Right lower extremity: normal to inspection; no edema Left lower extremity: normal to inspection; no edema Psych Appearance: grossly normal Mental Status: mental status grossly normal Speech and Movement: speech and movement normal Course Initial Documented Vital Signs Temperature 99.6 F 09/26/18 15:13 Pulse Rate 140 H 02/22/19 15:13 Blood Pressure 140/78 09/26/18 15:13 Pulse Oximetry 86 L 09/26/18 15:13 Last Documented Vital Signs Temperature 99.6 F 09/26/18 15:13 Pulse Rate 117 H 09/26/18 17:51 Respiratory Rate 27 H 09/26/18 17:51 Blood Pressure 109/66 09/26/18 17:51 Pulse Oximetry 98 09/26/18 17:51 Critical Care Time Critical Care Time: Yes Total Critical Care Time: 45 Attestation: Time to perform other separately billable procedures was not included in the critical care time. My time did not include minutes spent treating any other patients simultaneously or on activities that did not directly contribute to the patient's treatment. The services I provided to this patient were to treat and/or prevent clinically significant deterioration due to respiratory distress, tachypnea, tachycardia I provided critical care services requiring my management, as noted below: Chart data review, documentation time, medication orders and management, vital sign assessments/reviewing monitor data, ordering and reviewing lab tests, ordering and interpreting/reviewing x-rays and diagnostic studies, care of the patient and discussion of the patient with the admitting physicians Medical Decision Making MDM Narrative Medical decision making narrative: This is a 63 year old male who presented to the ED with chief complaint of worsening shortness of breath and cough x3 days. Pt has a history of severe COPD, he is on home oxygen, 2L. Pt states he has had progressively worsening cough and coughing up yellow/green/brown sputum. Pt presented to the ED in acute respiratory distress, his O2 sat at initial presentation was 86%. He was found to be tachypneic, laboring to breath, and unable to speak in full sentences. He was also found to be tachycardic with HR of 140bpm. Afebrile. Patient will be worked up for pneumonia and acute exacerbation of COPD Pt states his physician Dr Shea has him on a current prednisone regimen of 90mg , which he has been taking for the last 8 days. No recent antibiotic use. The patient was initially treated for the presumptive diagnosis of CHF because he had wet sounding breath sounds. He was given Nitropaste and Lasix. However , the picture has changed to more of a respiratory infection picture. The Nitropaste has been removed. He has been treated empirically for pneumonia with IV Rocephin and Zithromax. He has also received 2 L of IV fluids. He meets septic criteria and that he is tachycardic with a leukocytosis and the source of respiratory infection. He is being admitted for further treatment. Medical Screen Exam Complete: Yes Emergency Medical Condition: Yes Differential Diagnosis Differential Diagnosis: Pneumonia Acute COPD exacerbation Congestive Heart Failure Lab Data Lab results reviewed: Yes I reviewed the patient's lab results. Result diagrams: 09/26/18 15:39 09/26/18 15:39 Lab Results 09/26/18 09/26/18 09/26/18 Range/Units 15:39 15:39 15:39 WBC 19.0 H (4.0-11.0) th/mm3 RBC 4.58 (4.50-5.90) mil/mm3 Hgb 14.5 (13.0-17.0) gm/dL Hct 42.5 (39.0-51.0) % MCV 92.8 (80.0-100.0) fL MCH 31.8 (27.0-34.0) pg MCHC 34.2 (32.0-36.0) % RDW 13.0 (11.6-17.2) % Plt Count 219 (150-450) th/mm3 MPV 7.4 (7.0-11.0) fL Neut % (Auto) 92.0 H (16.0-70.0) % Lymph % (Auto) 3.2 L (9.0-44.0) % [place] % (Auto) 4.4 (0.0-8.0) % Eos % (Auto) 0.2 (0.0-4.0) % Baso % (Auto) 0.2 (0.0-2.0) % Neut # (Auto) 17.5 H (1.8-7.7) th/mm3 Lymph # (Auto) 0.6 L (1.0-4.8) th/mm3 [place] # (Auto) 0.8 (0.0-0.9) th/mm3 Eos # (Auto) 0.0 (0.0-0.4) th/mm3 Baso # (Auto) 0.0 (0.0-0.2) th/mm3 WBC Differential . Differential Comment Auto diff final PT 10.0 (9.8-11.6) sec INR 1.0 Ratio APTT 26.5 (23.4-31.7) sec Sodium 131 L (136-145) meq/L Potassium 4.3 (3.5-5.1) meq/L Chloride 96 L (98-107) meq/L Carbon Dioxide 26.5 (21.0-32.0) meq/L Anion Gap 9 (5-15) meq/L BUN 11 (7-18) mg/dL Creatinine 0.80 (0.60-1.30) mg/dL Estimated GFR Greater than 89 (>89) mL/min Random Glucose 109 H (74-106) mg/dL Lactic Acid (0.4-2.0) mmol/L Calcium 8.7 (8.5-10.1) mg/dL Total Bilirubin 0.9 (0.2-1.0) mg/dL AST 19 (15-37) U/L ALT 22 (12-78) U/L Alkaline Phosphatase 70 (45-117) U/L Troponin I Less than 0.02 L (0.02-0.05) ng/mL B-Natriuretic Peptide (0-100) pg/mL Total Protein 7.3 (6.4-8.2) g/dL Albumin 3.7 (3.4-5.0) g/dL 09/26/18 09/26/18 Range/Units 15:39 15:53 WBC (4.0-11.0) th/mm3 RBC (4.50-5.90) mil/mm3 Hgb (13.0-17.0) gm/dL Hct (39.0-51.0) % MCV (80.0-100.0) fL MCH (27.0-34.0) pg MCHC (32.0-36.0) % RDW (11.6-17.2) % Plt Count (150-450) th/mm3 MPV (7.0-11.0) fL Neut % (Auto) (16.0-70.0) % Lymph % (Auto) (9.0-44.0) % [place] % (Auto) (0.0-8.0) % Eos % (Auto) (0.0-4.0) % Baso % (Auto) (0.0-2.0) % Neut # (Auto) (1.8-7.7) th/mm3 Lymph # (Auto) (1.0-4.8) th/mm3 [place] # (Auto) (0.0-0.9) th/mm3 Eos # (Auto) (0.0-0.4) th/mm3 Baso # (Auto) (0.0-0.2) th/mm3 WBC Differential Differential Comment PT (9.8-11.6) sec INR Ratio APTT (23.4-31.7) sec Sodium (136-145) meq/L Potassium (3.5-5.1) meq/L Chloride (98-107) meq/L Carbon Dioxide (21.0-32.0) meq/L Anion Gap (5-15) meq/L BUN (7-18) mg/dL Creatinine (0.60-1.30) mg/dL Estimated GFR (>89) mL/min Random Glucose (74-106) mg/dL Lactic Acid 1.7 (0.4-2.0) mmol/L Calcium (8.5-10.1) mg/dL Total Bilirubin (0.2-1.0) mg/dL AST (15-37) U/L ALT (12-78) U/L Alkaline Phosphatase (45-117) U/L Troponin I (0.02-0.05) ng/mL B-Natriuretic Peptide 13 (0-100) pg/mL Total Protein (6.4-8.2) g/dL Albumin (3.4-5.0) g/dL Imaging Data Radiologist's impression: Chest X-Ray 09/26/18 15:25 CONCLUSION: Stable appearance of the chest. Discharge Plan Discharge Disposition Patient Disposition: ED Admit(ED Internal Use Only) Discharge Order Discharge Orders: ED Use Only Admit Order (Routine); Ordered 09/26/18 Ordered By: Dian Quigley Discharge Details Diagnosis: Sepsis, Acute respiratory distress, Leukocytosis, Acute respiratory infection Physicians Team ED Provider: Dian Quigley Primary Care Provider: Mik Clement Rxs /Orders / Referrals /Forms Prescriptions: No Action lisinopril 20 mg Tablet 20 mg PO BID RF: 0 thiamine HCl (vitamin B1) 100 mg Tablet 100 mg PO DAILY RF: 0 hydrocodone-acetaminophen 7.5-325 mg Tablet 1 tab PO TID PRN (Reason: Pain) RF: 0 pantoprazole 40 mg Tablet,Delayed Release (Dr/Ec) 40 mg PO DAILY RF: 0 montelukast 10 mg Tablet 10 mg PO QPM RF: 0 lorazepam 1 mg Tablet 1 mg PO TID PRN (Reason: anxiety) RF: 0 albuterol sulfate [Ventolin HFA] 90 mcg/actuation Hfa Aerosol Inhaler 2 puff INHALATION Q4-6H PRN (Reason: SOB) RF: 0 loratadine 10 mg Tablet 10 mg PO DAILY RF: 0 umeclidinium [Incruse Ellipta] 62.5 mcg/actuation Blister With Device 1 inh INHALATION Q24H RF: 0 ipratropium-albuterol 0.5 mg-3 mg(2.5 mg base)/3 mL Solution For Nebulization 3 ml INHALATION Q6H 30 Days Qty: 3 RF: 1 prednisone 10 mg tablet 30 mg PO DIRECTED Qty: 65 RF: 0 fluticasone-vilanterol [Breo Ellipta] 200-25 mcg/dose Blister With Device 1 inh INHALATION DAILY RF: 0 Status ED Status: With Doctor
--- NOTE | 2018-09-26 16:07 | XR ---
EXAM DATE: 09/26/2018 4:05 PM EST AGE/SEX: 63 years / Male INDICATIONS: Short of breath. CLINICAL DATA: This is the patient's initial encounter. Patient reports that signs and symptoms have been present for 1 day and indicates a pain score of 0/10. MEDICAL/SURGICAL HISTORY: Chronic obstructive pulmonary disease. . right upper lobe removed COMPARISON: [facility] – [place] 1V SINGLE AP, 06/08/2018. . FINDINGS: There is persistent volume loss of the right hemithorax with blunting of the right lateral costophren ic angle, apical pleural thickening and scarring at the base. Left lung is clear. Heart size upper li mits normal. Osseous structures are intact. CONCLUSION: Stable appearance of the chest. Electronically signed by: Oscar Becerra MD Board Certified Radiologist 09/26/2018 4:06 PM EST
[2018-09-26 16:24] LABS: Baso % (Auto) 0.2 % (0.0-2.0); Eos % (Auto) 0.2 % (0.0-4.0); Hematocrit 42.5 % (39.0-51.0); Hemoglobin 14.5 gm/dL (13.0-17.0); Lymph # (Auto) 0.6 th/mm3 (1.0-4.8); Lymph % (Auto) 3.2 % (9.0-44.0); Mean Corpuscular HGB Conc 34.2 % (32.0-36.0); Mean Corpuscular Hemoglobin 31.8 pg (27.0-34.0); Mean Corpuscular Volume 92.8 fL (80.0-100.0); Mean Platelet Volume 7.4 fL (7.0-11.0); Mono # (Auto) 0.8 th/mm3 (0.0-0.9); Mono % (Auto) 4.4 % (0.0-8.0); Neut # (Auto) 17.5 th/mm3 (1.8-7.7); Platelet Count 219 th/mm3 (150-450); Red Blood Count 4.58 mil/mm3 (4.50-5.90)
[2018-09-26 16:34] LABS: Activated Partial Thrombo Time 26.5 sec (23.4-31.7)
[2018-09-26] MEDS ORDERED: Azithromycin Inj 500 MG in Sodium Chlor 0.9% Inj 250 ML IV.SIG ONE (16:34)
[2018-09-26 16:47] LABS: Albumin 3.7 g/dL (3.4-5.0); Anion Gap 9 meq/L (5-15); Aspartate Aminotransferase 19 U/L (15-37); Blood Urea Nitrogen 11 mg/dL (7-18); Calcium 8.7 mg/dL (8.5-10.1); Carbon Dioxide 26.5 meq/L (21.0-32.0); Chloride 96 meq/L (98-107); Glomerular Filtration Rate Greater Than 89 mL/min (>89); Glucose,Random 109 mg/dL (74-106); Potassium 4.3 meq/L (3.5-5.1); Sodium 131 meq/L (136-145)
[2018-09-26 16:48] LABS: Alanine Aminotransferase 22 U/L (12-78)
[2018-09-26 16:52] LABS: Alkaline Phosphatase 70 U/L (45-117); Total Protein 7.3 g/dL (6.4-8.2)
[2018-09-26] MEDS: Sod Chloride 0.9% Inj 1,000 ML IV.SIG SCH ×2 (17:23→18:25)
--- NOTE | 2018-09-26 22:14 | P.HP ---
History of Present Illness Service: [facility] Primary Care Physician: Mik Clement MD Chief Complaint: Increasing shortness of breath despite home treatment History of Present Illness: Mr. Sanon is a 63-year-old white male who presented to the emergency department today with worsening shortness of breath and cough over a 3-day time period. He has a known history of hypertension and severe COPD he is followed by pulmonary is on chronic home oxygen at 2 L also prednisone at a dose of 90 mg wheezing give recently given by pulmonary, home nebulizer treatment, with no improvement in his symptoms. Patient came to the emergency room denied any fevers but did complain of feeling some warm sensations and some hot flashes. He does have a history of a pneumonectomy right apical lung lobe 2013, and had a fungal infection at that time. Patient in the emergency room was treated with several nebulizer treatments initial feeling was possibly consistent with congestive heart failure so he did receive Lasix nitro chest x-ray was done which showed no active congestive heart failure nor did it show any pneumonia at this time however his symptoms are consistent with a bronchitic picture he did meet sepsis criteria with a elevated WBC count of 19,000 he was slightly hypoxic on initial arrival and he also was tachypneic. Patient will be admitted for IV antibiotics as well duo nebulizer treatment and IV Solu-Medrol. - Diagnosis (1) Acute exacerbation of chronic obstructive pulmonary disease (COPD) (2) Sepsis (3) Acute respiratory distress (4) Leukocytosis Inpatient Certification: I certify that the inpatient services were ordered in accordance with Medicare regulations governing the order. This includes certification that hospital inpatient services are reasonable and necessary and in the case of services not specified as inpatient-only under 42 CFR 419.22(n), that they are appropriately provided as inpatient services in accordance to with the 2-midnight benchmark under 43 CFR 412.3(e) Review of Systems All other systems reviewed negative except as stated in HPI PMFSH - History History Provided By: Patient - Medical History Medical History: Medical History (Last Reviewed 09/26/18 @ 22:11 by Kemar Corley MD) Basal cell carcinoma of neck COPD (chronic obstructive pulmonary disease) Carcinoma of nose - Surgical History Surgical History: Surgical History (Last Reviewed 09/26/18 @ 22:11 by Kemar Corley MD) History of lung surgery - Tobacco History Second Hand Smoke Exposure: No Tobacco Use In Past 30 Days: No Smoking Status: Former smoker Tobacco Type: Cigarettes - Alcohol History How Often Do You Have a Drink Containing Alcohol: 4 or more times a week - Substance Use History Substance History: No History of Abuse - Travel History Recent Travel in the [place] Within the Last 8 Weeks: No Recent Travel Out of the Country Within the Last 8 Weeks: No - Immunization History Tetanus Immunization: <5 Years Medications and Allergies Active Medications: Active Medications Hydrocodone Bitart/Acetaminophen ([place] 7.5/325) 1 tab PO TID PRN PRN Reason: Pain 1-10 Albuterol (Duoneb Neb (Bryan)) 1 ampul NEB Q6HR NEB BRYAN Fluticasone/Vilanterol (Breo Ellipta 200/25 Mcg Inh) 1 puff INH DAILY BRYAN Ceftriaxone Sodium 1,000 mg/ (Sodium Chloride) 100 mls @ 200 mls/hr IV.SIG Q24H BRYAN Azithromycin 500 mg/ Sodium (Chloride) 250 mls @ 250 mls/hr IV.SIG Q24H BRYAN Lisinopril (Prinivil) 20 mg PO BID BRYNA Loratadine (Claritin) 10 mg PO DAILY BRYAN Lorazepam (Ativan) 1 mg PO TID PRN PRN Reason: anxiety Methylprednisolone Sodium Succinate (Solumedrol Inj) 60 mg IV.PUSH Q8H BRYAN Montelukast Sodium (Singulair) 10 mg PO QPM BRYAN Non-Formulary Medication (Umeclidinium [Incruse Ellipta]) 1 inh INHALATION Q24H BRYAN Non-Formulary Medication (Albuterol Hfa Inh) 2 puff INHALATION Q4-6H PRN PRN Reason: SHORTNESS OF BREATH Pantoprazole Sodium (Protonix) 40 mg PO DAILY BRYAN Sodium Chloride (Ns Flush) 2 ml IV.FLUSH PRN PRN PRN Reason: FLUSH AFTER USING IV ACCESS Last Admin: 09/26/18 15:37 Dose: 2 ml Thiamine HCl (Vitamin B1) 100 mg PO DAILY BRYAN Allergies Allergy/AdvReac Type Severity Reaction Status Date / Time No Known Allergies Allergy Verified 09/26/18 15:24 Home Medications Medication Instructions Recorded Confirmed Type albuterol sulfate [Ventolin HFA] 2 puff INHALATION Q4-6H PRN 06/10/18 09/26/18 History hydrocodone-acetaminophen 1 tab PO TID PRN 06/10/18 09/26/18 History lisinopril 20 mg PO BID 06/10/18 09/26/18 History loratadine 10 mg PO DAILY 06/10/18 09/26/18 History lorazepam 1 mg PO TID PRN 06/10/18 09/26/18 History montelukast 10 mg PO QPM 06/10/18 09/26/18 History pantoprazole 40 mg PO DAILY 06/10/18 09/26/18 History thiamine HCl (vitamin B1) 100 mg PO DAILY 06/10/18 09/26/18 History umeclidinium [Incruse Ellipta] 1 inh INHALATION Q24H 06/10/18 09/26/18 History fluticasone-vilanterol [Breo 1 inh INHALATION DAILY 09/26/18 09/26/18 History Ellipta] Exam Vital signs: Vital Signs 09/26/18 15:13 09/26/18 15:47 09/26/18 17:51 Temperature 99.6 F Pulse Rate 140 H 119 H 117 H Respiratory Rate 18 27 H Blood Pressure 140/78 109/66 Pulse Oximetry 86 L 98 09/26/18 19:21 09/26/18 20:31 09/26/18 20:51 Temperature 98.5 F Pulse Rate 91 H 95 H Respiratory Rate 24 22 18 Blood Pressure 134/70 109/70 Pulse Oximetry 99 94 L 09/26/18 21:05 Temperature Pulse Rate Respiratory Rate Blood Pressure Pulse Oximetry 97 Intake & Output 09/26/18 09/26/18 09/27/18 06:59 18:59 06:59 Intake Total 1350 / 1350 1000 / 1000 Output Total 1999 Balance -650 / -650 1000 / 1000 Weight 81.647 kg Intake: IV 1350 / 1350 1000 / 1000 Azithromycin Inj 500 MG In NS 250 / 250 Inj 250 ML @ 250 mls/hr IV.SIG ONCE ONE Rx#:[id number] NS Inj 1,000 ML @ 2000 mls/hr 1000 / 1000 1000 / 1000 IV.SIG Q30M BRYAN Rx#:[id number] Rocephin Inj 2,000 MG In NS Inj 100 / 100 100 ML @ 200 mls/hr IV.SIG ONCE ONE Rx#:[id number] Output: Urine 1999 Narrative: GENERAL: SKIN: Warm and dry. HEAD: Normocephalic. EYES: No scleral icterus. No injection or drainage. NECK: Supple, trachea midline. No JVD or lymphadenopathy. CARDIOVASCULAR: Regular rate and rhythm without murmurs, gallops, or rubs. RESPIRATORY: Decreased breath sounds with bilateral rhonchi GASTROINTESTINAL: Abdomen soft, non-tender, nondistended. MUSCULOSKELETAL: No cyanosis, or edema. BACK: Nontender without obvious deformity. No CVA tenderness. Results - Labs CBC & Chem 7: 09/26/18 15:39 09/26/18 15:39 Labs: Laboratory Results - last 24 hr 09/26/18 09/26/18 09/26/18 15:39 15:39 15:39 WBC 19.0 H RBC 4.58 Hgb 14.5 Hct 42.5 MCV 92.8 MCH 31.8 MCHC 34.2 RDW 13.0 Plt Count 219 MPV 7.4 Neut % (Auto) 92.0 H Lymph % (Auto) 3.2 L [place] % (Auto) 4.4 Eos % (Auto) 0.2 Baso % (Auto) 0.2 Neut # (Auto) 17.5 H Lymph # (Auto) 0.6 L [place] # (Auto) 0.8 Eos # (Auto) 0.0 Baso # (Auto) 0.0 WBC Differential . Differential Comment Auto diff final PT 10.0 INR 1.0 APTT 26.5 Sodium 131 L Potassium 4.3 Chloride 96 L Carbon Dioxide 26.5 Anion Gap 9 BUN 11 Creatinine 0.80 Estimated GFR Greater than 89 Random Glucose 109 H Lactic Acid Calcium 8.7 Total Bilirubin 0.9 AST 19 ALT 22 Alkaline Phosphatase 70 Troponin I Less than 0.02 L B-Natriuretic Peptide Total Protein 7.3 Albumin 3.7 09/26/18 09/26/18 15:39 15:53 WBC RBC Hgb Hct MCV MCH MCHC RDW Plt Count MPV Neut % (Auto) Lymph % (Auto) [place] % (Auto) Eos % (Auto) Baso % (Auto) Neut # (Auto) Lymph # (Auto) [place] # (Auto) Eos # (Auto) Baso # (Auto) WBC Differential Differential Comment PT INR APTT Sodium Potassium Chloride Carbon Dioxide Anion Gap BUN Creatinine Estimated GFR Random Glucose Lactic Acid 1.7 Calcium Total Bilirubin AST ALT Alkaline Phosphatase Troponin I B-Natriuretic Peptide 13 Total Protein Albumin - Imaging Impressions Chest X-Ray 09/26/18 15:25 CONCLUSION: Stable appearance of the chest. Caprini VTE Risk Assessment Caprini VTE Risk Assessment: Moderate/High Risk (score >= 2) Caprini Risk Assessment Model: Point Value = 1 Point Value = 2 Point Value = 3 Point Value = 5 Age 41-60 Minor surgery BMI > 25 kg/m2 Swollen legs Varicose veins or History of unexplained or recurrent spontaneous Oral contraceptives or hormone replacement Sepsis (< 1 month) Serious lung disease, including pneumonia (< 1 month) Abnormal pulmonary function Acute myocardial infarction Congestive heart failure (< 1 month) History of inflammatory bowel disease Medical patient at bed rest Age 61-74 Arthroscopic surgery Major open surgery (> 45 min) Laparoscopic surgery (> 45 min) Malignancy Confined to bed (> 72 hours) Immobilizing plaster cast Central venous access Age >= 75 History of VTE Family history of VTE Factor V Leiden Prothrombin [id number] Lupus anticoagulant Anticardiolipin antibodies Elevated serum homocysteine Heparin-induced thrombocytopenia Other congenital or acquired thrombophilia Stroke (< 1 month) Elective arthroplasty Hip, pelvis, or leg fracture Acute spinal cord injury (< 1 month) Prophylaxis Regimen: Total Risk Factor Score Risk Level Prophylaxis Regimen 0-1 Low Early ambulation 2 Moderate Order ONE of the following: *Sequential Compression Device (SCD) *Heparin 5000 units SQ BID 3-4 Higher Order ONE of the following medications: *Heparin 5000 units SQ TID *Enoxaparin/Lovenox 40 mg SQ daily (WT < 150 kg, CrCl > 30 mL/min) *Enoxaparin/Lovenox 30 mg SQ daily (WT < 150 kg, CrCl > 10-29 mL/min) *Enoxaparin/Lovenox 30 mg SQ BID (WT < 150 kg, CrCl > 30 mL/min) AND/OR *Sequential Compression Device (SCD) 5 or more Highest Order ONE of the following medications: *Heparin 5000 units SQ TID (Preferred with Epidurals) *Enoxaparin/Lovenox 40 mg SQ daily (WT < 150 kg, CrCl > 30 mL/min) *Enoxaparin/Lovenox 30 mg SQ daily (WT < 150 kg, CrCl > 10-29 mL/min) *Enoxaparin/Lovenox 30 mg SQ BID (WT < 150 kg, CrCl > 30 mL/min) AND *Sequential Compression Device (SCD) Assessment and Plan - Assessment (1) Acute exacerbation of chronic obstructive pulmonary disease (COPD) Code(s): J44.1 - Chronic obstructive pulmonary disease with (acute) exacerbation Status: Acute Plan: Plan for now duo nebulizer treatment every 6 Solu-Medrol 60 every 8 coverage with antibiotics in view of the leukocytosis possible sepsis Rocephin and Zithromax (2) Sepsis Code(s): A41.9 - Sepsis, unspecified organism Status: Acute Plan: As stated above has a positive WBC count of 19,000 as well as was tachypnea up in the emergency room blood cultures were sent (3) Acute respiratory distress Code(s): R06.03 - Acute respiratory distress Status: Acute Plan: Initially was hypoxic in the emergency room with oxygen less than 90% was given oxygen is improved with that (4) Leukocytosis Code(s): D72.829 - Elevated white blood cell count, unspecified Status: Acute Plan: Leukocyte cytosis could be on the basis of him being on steroids at a 90 mg dose however could be also related to his bronchitic picture will follow white blood cell count - Plan Further plan as case develops Code Status: Full Discussed Condition With: Patient (2) Sepsis Qualifiers: Sepsis type: sepsis due to unspecified organism Qualified Code(s): A41.9 - Sepsis, unspecified organism (4) Leukocytosis Qualifiers: Leukocytosis type: unspecified Qualified Code(s): D72.829 - Elevated white blood cell count, unspecified
[2018-09-26] MEDS: MethylPREDNISolone Sod Succinate Inj 125 MG/2 ML Vial IV.PUSH SCH (22:47)
[2018-09-26] MEDS: LORazepam 1 MG Tablet PO PRN (22:52)
[2018-09-27 07:05] LABS: Baso % (Auto) 0.1 % (0.0-2.0); Hematocrit 41.6 % (39.0-51.0); Hemoglobin 14.1 gm/dL (13.0-17.0); Lymph # (Auto) 0.3 th/mm3 (1.0-4.8); Lymph % (Auto) 2.5 % (9.0-44.0); Mean Corpuscular Hemoglobin 31.3 pg (27.0-34.0); Mean Platelet Volume 7.1 fL (7.0-11.0); Mono # (Auto) 0.1 th/mm3 (0.0-0.9); Mono % (Auto) 0.5 % (0.0-8.0); Neut # (Auto) 13.3 th/mm3 (1.8-7.7); Neut % (Auto) 96.9 % (16.0-70.0); Platelet Count 200 th/mm3 (150-450); Red Blood Count 4.52 mil/mm3 (4.50-5.90); Red Cell Distribution Width 12.9 % (11.6-17.2); White Blood Count 13.8 th/mm3 (4.0-11.0)
[2018-09-27 07:30] LABS: Anion Gap 11 meq/L (5-15); Blood Urea Nitrogen 13 mg/dL (7-18); Calcium 8.1 mg/dL (8.5-10.1); Carbon Dioxide 25.5 meq/L (21.0-32.0); Chloride 98 meq/L (98-107); Glomerular Filtration Rate Greater Than 89 mL/min (>89); Glucose,Random 156 mg/dL (74-106); Potassium 4.1 meq/L (3.5-5.1); Sodium 134 meq/L (136-145)
[2018-09-27] MEDS: MethylPREDNISolone Sod Succinate Inj 125 MG/2 ML Vial IV.PUSH SCH ×3 (07:40→22:38)
[2018-09-27] MEDS ORDERED: UMECLIDINIUM INH SCH (09:00)
[2018-09-27] MEDS ORDERED: Loratadine 10 MG Tablet PO SCH (09:00)
[2018-09-27] MEDS: Lisinopril 20 MG Tablet PO SCH ×2 (09:04→21:23)
--- NOTE | 2018-09-27 10:49 | P.PNIM ---
Subjective Interval history: feels better Physical Exam Vital signs: Last Vital Signs Temp 98.1 F 09/27/18 08:00 Pulse 85 09/27/18 09:12 Resp 14 09/27/18 09:12 BP 140/67 09/27/18 08:00 Pulse Ox 98 09/27/18 09:30 Narrative: heart reg lung good air entry angelic abd s/nt ext no edema Results Labs CBC & Chem 7: 09/27/18 06:47 09/27/18 06:47 Assessment and Plan Assessment (1) Acute exacerbation of chronic obstructive pulmonary disease (COPD): Code(s): J44.1 - Chronic obstructive pulmonary disease with (acute) exacerbation Status: Acute (2) Acute respiratory distress: Code(s): R06.03 - Acute respiratory distress Status: Acute Plan 1. severe copd/02 dep with acute exacerbation cont iv solumedrol cont nebulizer therapy scheduled oxygen cont rocephin and azithromycin add claritin d for sinus drainage add nystatin s/s for thursh 2. hx RUL lobectomy for aspergillus infection 02/14/[address] Hope Re-do right thoracotomy, RLL superior segmentectomy, right middle lobe wedge resection and talc pleurodesis on 02/20/12 for persistent right lung leak. 3,CAD 4,HTN 5,Hyperlipidemia 6,Anxiety 7. hx of Alcohol dependence 8. hx rle dvt/ivc filter l Progress Note: Quality VTE Deep Vein Thrombosis/Pulmonary Embolism Present on Admission: Yes
[2018-09-27] MEDS ORDERED: Loratadine/Pseudoephedrine 12HR Tablet PO ONE (10:55)
[2018-09-27] MEDS: Loratadine/Pseudoephedrine 12HR Tablet PO SCH ×2 (12:48→21:22)
[2018-09-27] MEDS: LORazepam 1 MG Tablet PO PRN ×2 (12:48→21:23)
[2018-09-27] MEDS: Clotrimazole 10 MG Troche BUCCAL SCH ×3 (12:50→21:23)
[2018-09-27] MEDS: Azithromycin Inj 500 MG in Sodium Chlor 0.9% Inj 250 ML IV.SIG SCH (17:36)
[2018-09-27] MEDS: Montelukast 10 MG Tablet PO SCH (17:47)
[2018-09-28] MEDS: LORazepam 1 MG Tablet PO PRN ×2 (05:51→14:22)
[2018-09-28] MEDS: MethylPREDNISolone Sod Succinate Inj 125 MG/2 ML Vial IV.PUSH SCH ×3 (06:14→22:58)
[2018-09-28 08:46] LABS: Anion Gap 10 meq/L (5-15); Blood Urea Nitrogen 15 mg/dL (7-18); Calcium 8.5 mg/dL (8.5-10.1); Carbon Dioxide 26.3 meq/L (21.0-32.0); Chloride 97 meq/L (98-107); Glomerular Filtration Rate Greater Than 89 mL/min (>89); Glucose,Random 160 mg/dL (74-106); Potassium 3.7 meq/L (3.5-5.1); Sodium 133 meq/L (136-145)
[2018-09-28] MEDS: Lisinopril 20 MG Tablet PO SCH ×2 (08:59→20:54)
[2018-09-28] MEDS: Clotrimazole 10 MG Troche BUCCAL SCH (08:59)
[2018-09-28] MEDS: Loratadine/Pseudoephedrine 12HR Tablet PO SCH ×2 (09:03→20:54)
--- NOTE | 2018-09-28 11:49 | P.PNIM ---
Subjective Interval history: pt says the oral lozenges he took for thrush last night cause severe throat irritation. Physical Exam Vital signs: Last Vital Signs Temp 97.2 F L 09/28/18 08:00 Pulse 102 H 09/28/18 08:38 Resp 18 09/28/18 08:38 BP 140/71 09/28/18 08:00 Pulse Ox 96 09/28/18 09:18 Narrative: heart reg angelic rhonc/wheeze ant neck some wheeze abd s/nt ext no edema Results Labs CBC & Chem 7: 09/27/18 06:47 09/28/18 05:43 Assessment and Plan Assessment (1) Acute exacerbation of chronic obstructive pulmonary disease (COPD): Code(s): J44.1 - Chronic obstructive pulmonary disease with (acute) exacerbation Status: Acute (2) Acute respiratory distress: Code(s): R06.03 - Acute respiratory distress Status: Acute Plan 1. severe copd/02 dep with acute exacerbation cont iv solumedrol cont nebulizer therapy scheduled oxygen cont rocephin and azithromycin add claritin d for sinus drainage adjust meds for oral thrush. mucomyst added. pt asking for robittusin check gs/cx 2. hx RUL lobectomy for aspergillus infection 02/14/[address] Hope Re-do right thoracotomy, RLL superior segmentectomy, right middle lobe wedge resection and talc pleurodesis on 02/20/12 for persistent right lung leak. 3,CAD 4,HTN 5,Hyperlipidemia 6,Anxiety 7. hx of Alcohol dependence 8. hx rle dvt/ivc filter l Progress Note: Quality VTE Deep Vein Thrombosis/Pulmonary Embolism Present on Admission: Yes
[2018-09-28] MEDS ORDERED: Nystatin/Diphenhydramine/Lidocaine Mouthwash (Adult) 120 ML Botttle SWISH-SWAL SCH (13:15)
[2018-09-28] MEDS: FLUCONAZOLE 10 MG/ML PO SCH (15:56)
[2018-09-28] MEDS: Azithromycin Inj 500 MG in Sodium Chlor 0.9% Inj 250 ML IV.SIG SCH (17:04)
[2018-09-28] MEDS: Montelukast 10 MG Tablet PO SCH (18:02)
[2018-09-29] MEDS: MethylPREDNISolone Sod Succinate Inj 125 MG/2 ML Vial IV.PUSH SCH ×3 (06:11→23:12)
[2018-09-29] MEDS: LORazepam 1 MG Tablet PO PRN ×2 (06:13→13:31)
[2018-09-29] MEDS: FLUCONAZOLE 10 MG/ML PO SCH (08:17)
[2018-09-29] MEDS: Loratadine/Pseudoephedrine 12HR Tablet PO SCH (08:19)
[2018-09-29] MEDS: Lisinopril 20 MG Tablet PO SCH ×2 (08:20→21:19)
--- NOTE | 2018-09-29 11:23 | P.PNIM ---
Subjective Interval history: Pt feeling slightly better today Physical Exam Vital signs: Last Vital Signs Temp 97.6 F 09/29/18 08:00 Pulse 102 H 09/29/18 08:40 Resp 20 09/29/18 08:40 BP 149/78 H 09/29/18 08:00 Pulse Ox 95 09/29/18 08:40 Narrative: General: NAD, AAOx3 Chest: Bilateral rhonchi and wheezing Cardiac: Regular Abd: +BS, soft ND/NT Ext: no edema Results Labs CBC & Chem 7: 09/27/18 06:47 09/28/18 05:43 Imaging Chest X-Ray 09/26/18 15:25 CONCLUSION: Stable appearance of the chest. Assessment and Plan Assessment (1) Acute exacerbation of chronic obstructive pulmonary disease (COPD): Code(s): J44.1 - Chronic obstructive pulmonary disease with (acute) exacerbation Status: Acute (2) Acute respiratory distress: Code(s): R06.03 - Acute respiratory distress Status: Acute Plan Severe COPD/02 dep with acute exacerbation - Cont iv Solu-Medrol - Cont nebulizer therapy Q4H scheduled and PRN - Supplemental oxygen - Pt is on Breo Ellipta and Incruse ellipta - Cont Rocephin and azithromycin - Cont. Claritin D for sinus drainage - adjust meds for oral thrush, Fluconazole liquid daily. - Pt refusing mucomyst - pt requested Robitusin - Sputum gram stain with many gram negative rods noted, await final culture Hx RUL lobectomy for aspergillus infection 02/14/[address] Hope - Re-do right thoracotomy, RLL superior segmentectomy, right middle lobe wedge resection and talc pleurodesis on 02/20/12 for persistent right lung leak. CAD HTN Hyperlipidemia Anxiety Hx of Alcohol dependence Hx RLE DVT/IVC filter l Attending Attestation The exam, history, and the medical decision-making described in the above note were completed with the assistance of the mid-level provider. I reviewed and agree with the findings presented. I attest that I had a [id number] encounter with the patient on the same day, and personally performed and documented my assessment and findings in the medical record. Patient examined. Assessment and plan formulated with Salome Maza PA-C. I agree with the above. Progress Note: Quality VTE Deep Vein Thrombosis/Pulmonary Embolism Present on Admission: Yes
[2018-09-29] MEDS: Azithromycin Inj 500 MG in Sodium Chlor 0.9% Inj 250 ML IV.SIG SCH (16:00)
[2018-09-29] MEDS: Montelukast 10 MG Tablet PO SCH (17:05)
[2018-09-29] MEDS: guaiFENesin/Codeine Syrup 200 MG/20 MG 10 ML UDC PO PRN (21:25)
[2018-09-30] MEDS: LORazepam 1 MG Tablet PO PRN ×2 (04:46→18:08)
[2018-09-30] MEDS: MethylPREDNISolone Sod Succinate Inj 125 MG/2 ML Vial IV.PUSH SCH ×3 (06:06→22:49)
[2018-09-30] MEDS: Loratadine 10 MG Tablet PO SCH (11:18)
[2018-09-30] MEDS: FLUCONAZOLE 10 MG/ML PO SCH (11:18)
[2018-09-30] MEDS: Lisinopril 20 MG Tablet PO SCH ×2 (11:18→20:26)
--- NOTE | 2018-09-30 13:39 | P.PNIM ---
Subjective Interval history: No new complaints. Physical Exam Vital signs: Last Vital Signs Temp 98.6 F 09/30/18 08:00 Pulse 99 H 09/30/18 08:00 Resp 19 09/30/18 08:00 BP 137/79 09/30/18 08:00 Pulse Ox 99 09/30/18 09:45 Narrative: General: NAD, AAOx3 Chest: Bilateral rhonchi and wheezing Cardiac: Regular Abd: +BS, soft ND/NT Ext: no edema Results Labs CBC & Chem 7: 09/27/18 06:47 09/28/18 05:43 Imaging Chest X-Ray 09/26/18 15:25 CONCLUSION: Stable appearance of the chest. Assessment and Plan Assessment (1) Acute exacerbation of chronic obstructive pulmonary disease (COPD): Code(s): J44.1 - Chronic obstructive pulmonary disease with (acute) exacerbation Status: Acute (2) Acute respiratory distress: Code(s): R06.03 - Acute respiratory distress Status: Acute Plan Severe COPD/02 dep with acute exacerbation - Cont iv Solu-Medrol - Cont nebulizer therapy Q4H scheduled and PRN - Supplemental oxygen - Pt is on Breo Ellipta and Incruse ellipta - Cont Rocephin and azithromycin - Cont. Claritin D for sinus drainage - adjust meds for oral thrush, Fluconazole liquid daily. - Pt was not refusing Mucomyst on 09/29 but it was documented as being refused in EHR but reportedly the medication was unavailable until yesterday evening. Pt is now on the Mucomyst Q4H - pt requested Robitusin - Sputum culture is growing gram negative rods noted, await final culture Hx RUL lobectomy for aspergillus infection 02/14/[address] Hope - Re-do right thoracotomy, RLL superior segmentectomy, right middle lobe wedge resection and talc pleurodesis on 02/20/12 for persistent right lung leak. CAD HTN Hyperlipidemia Anxiety Hx of Alcohol dependence Hx RLE DVT/IVC filter l Attending Attestation The exam, history, and the medical decision-making described in the above note were completed with the assistance of the mid-level provider. I reviewed and agree with the findings presented. I attest that I had a [id number] encounter with the patient on the same day, and personally performed and documented my assessment and findings in the medical record. Patient examined. Assessment and plan formulated with Salome Maza PA-C. I agree with the above. Progress Note: Quality VTE Deep Vein Thrombosis/Pulmonary Embolism Present on Admission: Yes
[2018-09-30] MEDS: Montelukast 10 MG Tablet PO SCH (18:08)
[2018-09-30] MEDS: guaiFENesin/Codeine Syrup 200 MG/20 MG 10 ML UDC PO PRN (22:53)
--- NOTE | 2018-10-01 00:15 | MB ---
cc: Maria Reynolds MD DATE: 09/30/2018 REASON FOR CONSULTATION: Dyspnea and cough and history of lung lobectomy. HISTORY OF PRESENT ILLNESS: This is a 63-year-old man who has had a history of dyspnea, history of COPD on home oxygen, and hypertension. He has been on oral steroids in the past. He has been experiencing wheezing and cough with chest tightness. Apparently, he was brought to the emergency room with increasing shortness of breath and low-grade fever. He denied any hemoptysis, but initially was bringing up some thick whitish mucus and, following admission, a chest x-ray was done, which showed scarring in the upper lung field due to a previous upper lobectomy on the right side. The patient received IV antibiotics and IV Solu-Medrol and is now better and is mostly in bed and has weakness of his lower extremities. PAST MEDICAL HISTORY: Includes history of basal cell carcinoma on the neck, COPD and emphysema. History of right upper lobectomy and history of pneumonia. He has had history for a fungal infection apparently, in the right apical area. HABITS: The patient was a prior smoker, 1 pack per day for more than 25 years. Drank alcohol moderately. Denies any illicit drug use. FAMILY HISTORY: Noncontributory. ALLERGIES: NO DRUG ALLERGIES LISTED. MEDICATION LIST: 1. Lisinopril 20 mg daily. 2. Claritin 10 mg daily. 3. Ativan 1 mg t.i.d. p.r.n. 4. Montelukast 10 mg a day. 5. Protonix 40 mg daily. 6. Recently on Rocephin 1 gram IV. 7. Zithromax 500 mg daily. FAMILY HISTORY: Unavailable and noncontributory. REVIEW OF SYSTEMS: The patient had some weight loss. No headaches or blackouts. No urinary symptoms. He has some weakness of his extremities and skin lesions, and denies any leg edema. Denies any blackout spells, but has some tremors of the extremities. PHYSICAL EXAMINATION: GENERAL: This averagely built, middle-aged, white male, alert, in no acute distress. VITAL SIGNS: Blood pressure 130/70, pulse is 100, respirations are 20, temperature 98.5. HEENT: Head is normocephalic. Pupils reactive. Tongue is moist. Nasal mucosa edematous. Throat is clear. NECK: Supple. No venous distention. No bruits or thyroid enlargement. CHEST: Equal movements with wheezes bilaterally and no crackles. HEART: Heart sounds regular S1, S2. No murmur, no S3. ABDOMEN: Soft, scaphoid, without masses. No organomegaly. Bowel sounds are active. EXTREMITIES: Reveal minimal edema. Muscle wasting of the extremities. Peripheral pulses are 1+. IMPRESSION: 1. COPD and chronic bronchitis. 2. History of right upper lobectomy with chronic scarring. 3. History of hypertension. PLAN: The patient will be sent for pulmonary function study, and a CT chest without contrast. He will be continued on 2 liters of oxygen by nasal cannula, nebulized DuoNeb solution every 6 hours. Sputum will be sent for Gram stain and culture. He will be given Breo Ellipta 100/25 mcg one puff daily. Thank you, Dr. Erickson, for this consultation. VKelechi Reynolds MD VJD/ledy , 10:28 PM , 10:40 PM
[2018-10-01] MEDS: LORazepam 1 MG Tablet PO PRN ×2 (03:50→14:49)
[2018-10-01] MEDS: MethylPREDNISolone Sod Succinate Inj 125 MG/2 ML Vial IV.PUSH SCH ×3 (06:28→22:42)
[2018-10-01] MEDS: Loratadine 10 MG Tablet PO SCH (08:39)
[2018-10-01] MEDS: Lisinopril 20 MG Tablet PO SCH ×2 (08:39→20:36)
[2018-10-01] MEDS: levoFLOXacin 500 MG Tablet PO SCH (08:39)
[2018-10-01] MEDS: FLUCONAZOLE 10 MG/ML PO SCH (08:40)
--- NOTE | 2018-10-01 14:22 | P.PNIM ---
Subjective Interval history: Patient now on 2 L via NC - patient chronically on 2L oxygen at home Patient feels that breathing is improving but not yet to baseline Physical Exam Vital signs: Last Vital Signs Temp 97.2 F L 10/01/18 04:00 Pulse 70 10/01/18 08:35 Resp 16 10/01/18 08:35 BP 166/81 H 10/01/18 04:00 Pulse Ox 97 10/01/18 09:02 Narrative: General: NAD, AAOx3 Chest: diminished bilateral upper lobes, LLL coarse crackles noted Cardiac: Regular Abd: +BS, soft ND/NT Ext: no edema Results Labs CBC & Chem 7: 09/27/18 06:47 09/28/18 05:43 Assessment and Plan Assessment (1) Acute exacerbation of chronic obstructive pulmonary disease (COPD): Code(s): J44.1 - Chronic obstructive pulmonary disease with (acute) exacerbation Status: Acute (2) Acute respiratory distress: Code(s): R06.03 - Acute respiratory distress Status: Acute Plan Severe COPD/02 dep with acute exacerbation - Cont iv Solu-Medrol - Cont nebulizer therapy Q4H scheduled and PRN - Supplemental oxygen - Pt is on Breo Ellipta and Incruse ellipta - Cont Rocephin and azithromycin DC'd 09/30 - Cont. Claritin D for sinus drainage - adjust meds for oral thrush, Fluconazole liquid daily. - Pt was not refusing Mucomyst on 09/29 but it was documented as being refused in EHR but reportedly the medication was unavailable until yesterday evening. Pt is now on the Mucomyst Q4H and Robitusin PRN - Sputum culture is growing Stenotrophomonas maltophilia and Klebsiella pneumoniae both sensitive to Levaquin - DC Diflucan 10/01 - Levaquin started 10/01 - consult to pulmonology who ordered CT chest - Chest CT 10/01/18 1. Stable postsurgical changes in the right hemithorax with volume loss, apical bleb and pleural parenchymal scarring. No superimposed acute infiltrate. 2. Old granulomatous disease bilaterally, left greater than right. 3. Atherosclerotic calcification of the coronary arteries. Hx RUL lobectomy for aspergillus infection 02/14/[address] Hope - Re-do right thoracotomy, RLL superior segmentectomy, right middle lobe wedge resection and talc pleurodesis on 02/20/12 for persistent right lung leak. CAD HTN Hyperlipidemia Anxiety Hx of Alcohol dependence Hx RLE DVT/IVC filter Attending Attestation The exam, history, and the medical decision-making described in the above note were completed with the assistance of the mid-level provider. I reviewed and agree with the findings presented. I attest that I had a [id number] encounter with the patient on the same day, and personally performed and documented my assessment and findings in the medical record. Patient examined. Assessment and plan formulated with Haily Ahuja PA-C. I agree with the above. Progress Note: Quality VTE Deep Vein Thrombosis/Pulmonary Embolism Present on Admission: Yes
--- NOTE | 2018-10-01 15:20 | CT ---
EXAM DATE: 10/01/2018 3:06 PM EST AGE/SEX: 63 years / Male INDICATIONS: COPD exacerbation. CLINICAL DATA: This is the patient's initial encounter. Patient reports that signs and symptoms have been present for 1 day and indicates a pain score of 0/10. MEDICAL/SURGICAL HISTORY: Chronic obstructive pulmonary disease. Carcinoma, head and neck. None. l louie surgery RADIATION DOSE: 12.32 CTDI (mGy) COMPARISON: [facility] – [place], [place] PULMONARY ANGIOGRAM, 09/07/2016. . TECHNIQUE: Multiple contiguous axial images were obtained through the chest without contrast. Image s were obtained in suspended respiration using multiple row detector helical technique. Using automa matthew exposure control and adjustment of the mA and/or kV according to patient size, radiation dose was kept as low as reasonably achievable to obtain optimal diagnostic quality images. DICOM format imag e data is available electronically for review and comparison. FINDINGS: Lungs: Postsurgical changes in the right hemithorax with volume loss and a stable apical bleb. Pleur al parenchymal scarring in the right perihilar distribution and upper portions of the remaining right lung. No superimposed acute infiltrate. Punctate granulomatous type calcifications are seen in the l eft pulmonary parenchyma with similar calcifications in the hilar structures bilaterally.. Mediastinum: There is good visualization of the great vessels of the middle mediastinum. No evidenc e of mediastinal or hilar adenopathy/mass. Atherosclerotic calcification of the coronary arteries. Pleurae: No evidence of focal thickening or pleural effusion. Axillae: Unremarkable. Bony Structures: Unremarkable. Miscellaneous: The examination was extended to include the upper abdomen, and both adrenal glands ar e normal in size and configuration. CONCLUSION: 1. Stable postsurgical changes in the right hemithorax with volume loss, apical bleb and pleural par enchymal scarring. No superimposed acute infiltrate. 2. Old granulomatous disease bilaterally, left greater than right. 3. Atherosclerotic calcification of the coronary arteries. Electronically signed by: Liam Greene MD Board Certified Radiologist 10/01/2018 3:19 PM EST
[2018-10-01] MEDS: Montelukast 10 MG Tablet PO SCH (18:06)
--- NOTE | 2018-10-01 19:41 | P.PN ---
Subjective Interval history: Sitting up and on oxygen at 3 L. Still has wheezing cough chest congestion and shortness of breath. CT chest was done and shows our previous surgery from lobectomy and old granulomatous disease. Patient had PFT done a few weeks back Physical Exam Vital signs: Vital Signs 09/30/18 20:00 09/30/18 21:05 10/01/18 00:00 Temperature 97.3 F L 97.5 F L Pulse Rate 94 H 90 90 Respiratory Rate 18 18 18 Blood Pressure 162/81 H 150/77 H Pulse Oximetry 94 L 95 94 L 10/01/18 04:00 10/01/18 04:41 10/01/18 08:35 Temperature 97.2 F L Pulse Rate 89 84 70 Respiratory Rate 18 16 16 Blood Pressure 166/81 H Pulse Oximetry 93 L 10/01/18 09:02 10/01/18 16:14 10/01/18 16:36 Temperature 97.6 F Pulse Rate 91 H 92 H Respiratory Rate 17 22 Blood Pressure 156/88 H Pulse Oximetry 97 95 Intake & Output 10/01/18 10/01/18 10/02/18 06:59 18:59 06:59 Intake Total 200 / 200 Balance 200 / 200 Weight 86.6 kg Intake: Oral 200 / 200 Other: # Voids 3 Date of Last Bowel Movement 09/30/18 09/30/18 # Bowel Movements 1 Narrative: GENERAL: Averagely built middle-aged white male alert and mildly dyspneic SKIN: Warm and dry. HEAD: Normocephalic. EYES: No scleral icterus. No injection or drainage. NECK: Supple, trachea midline. No JVD or lymphadenopathy. CARDIOVASCULAR: Regular rate and rhythm without murmurs, gallops, or rubs. RESPIRATORY: Decreased breath sounds with bilateral wheezes and scattered crackles in the right lung field GASTROINTESTINAL: Abdomen soft, non-tender, nondistended. MUSCULOSKELETAL: No cyanosis, or edema. BACK: Nontender without obvious deformity. No CVA tenderness. Neuro: No focal deficit. Results - Labs CBC & Chem 7: 09/27/18 06:47 09/28/18 05:43 Microbiology 09/28/18 17:15 Sputum - Expectorated Sputum Gram Stain - Final 09/28/18 17:15 Sputum - Expectorated Sputum Sputum Culture - Final Stenotrophomonas maltophilia Klebsiella pneumoniae 09/26/18 15:45 Blood - Peripheral Aerobic Blood Culture - Final No growth in 5 days 09/26/18 15:45 Blood - Peripheral Anaerobic Blood Culture - Final No growth in 5 days 09/26/18 15:52 Blood - Peripheral Aerobic Blood Culture - Final No growth in 5 days 09/26/18 15:52 Blood - Peripheral Anaerobic Blood Culture - Final No growth in 5 days - Imaging Impressions Chest CT 10/01/18 00:00 CONCLUSION: 1. Stable postsurgical changes in the right hemithorax with volume loss, apical bleb and pleural parenchymal scarring. No superimposed acute infiltrate. 2. Old granulomatous disease bilaterally, left greater than right. 3. Atherosclerotic calcification of the coronary arteries. Assessment and Plan - Assessment (1) Sleep apnea Code(s): G47.30 - Sleep apnea, unspecified Status: Acute (2) Acute exacerbation of chronic obstructive pulmonary disease (COPD) Code(s): J44.1 - Chronic obstructive pulmonary disease with (acute) exacerbation Status: Acute (3) Sepsis Code(s): A41.9 - Sepsis, unspecified organism Status: Acute (4) Acute respiratory distress Code(s): R06.03 - Acute respiratory distress Status: Acute (5) Leukocytosis Code(s): D72.829 - Elevated white blood cell count, unspecified Status: Acute (6) Acute respiratory infection Code(s): J22 - Unspecified acute lower respiratory infection Status: Acute - Plan #1 Levaquin 500 mg daily for gram-negative colonization 2. DuoNeb nebs every 4 hours. 3. Solu-Medrol 60 mg IV every 8Hr 4. Brio Ellipta 200 x 5 mcg 1 puff daily 5. Mucomyst nebs 2 cc 4 times daily 6. CBC BMP in a.m. (3) Sepsis Qualifiers: Sepsis type: sepsis due to unspecified organism Qualified Code(s): A41.9 - Sepsis, unspecified organism (5) Leukocytosis Qualifiers: Leukocytosis type: unspecified Qualified Code(s): D72.829 - Elevated white blood cell count, unspecified
[2018-10-01] MEDS: guaiFENesin/Codeine Syrup 200 MG/20 MG 10 ML UDC PO PRN (22:42)
[2018-10-02] MEDS: LORazepam 1 MG Tablet PO PRN ×3 (01:38→23:25)
[2018-10-02] MEDS: MethylPREDNISolone Sod Succinate Inj 125 MG/2 ML Vial IV.PUSH SCH ×3 (06:22→18:29)
[2018-10-02] MEDS: levoFLOXacin 500 MG Tablet PO SCH (08:17)
[2018-10-02] MEDS: Lisinopril 20 MG Tablet PO SCH ×2 (08:17→20:22)
[2018-10-02] MEDS: Loratadine 10 MG Tablet PO SCH (08:17)
--- NOTE | 2018-10-02 14:53 | P.PNIM ---
Subjective Interval history: Patient reports breathing is getting much better, but not yet back to baseline. cough improving also Physical Exam Vital signs: Last Vital Signs Temp 97.4 F L 10/02/18 11:00 Pulse 93 H 10/02/18 11:26 Resp 20 10/02/18 11:26 BP 155/86 H 10/02/18 11:00 Pulse Ox 93 L 10/02/18 11:00 Narrative: General: NAD, AAOx3 Chest: clear left upper lobe, crackles LLL Cardiac: Regular Abd: +BS, soft ND/NT Ext: no edema Results Labs CBC & Chem 7: 09/27/18 06:47 09/28/18 05:43 Assessment and Plan Assessment (1) Acute exacerbation of chronic obstructive pulmonary disease (COPD): Code(s): J44.1 - Chronic obstructive pulmonary disease with (acute) exacerbation Status: Acute (2) Acute respiratory distress: Code(s): R06.03 - Acute respiratory distress Status: Acute Plan Severe COPD/ dep with acute exacerbation - Cont iv Solu-Medrol -> (10/01) decreased to solu medrol 60mg Q12H - Cont nebulizer therapy Q4H scheduled and PRN - Supplemental oxygen - Pt is on Breo Ellipta and Incruse ellipta - Cont Rocephin and azithromycin - Cont. Claritin D for sinus drainage - adjust meds for oral thrush, Fluconazole liquid daily. - Pt refusing mucomyst - pt requested Robitusin - Sputum gram stain with Stenotrophomonas maltophilia and Klebsiella pneumoniae both sensitive to Levaquin - DC Diflucan 10/01 - Levaquin started 10/01 - consult to pulmonology who ordered CT chest - Chest CT 10/01/18 1. Stable postsurgical changes in the right hemithorax with volume loss, apical bleb and pleural parenchymal scarring. No superimposed acute infiltrate. 2. Old granulomatous disease bilaterally, left greater than right. 3. Atherosclerotic calcification of the coronary arteries. Hx RUL lobectomy for aspergillus infection 02/14/[address] Hope - Re-do right thoracotomy, RLL superior segmentectomy, right middle lobe wedge resection and talc pleurodesis on 02/20/12 for persistent right lung leak. CAD HTN Hyperlipidemia Anxiety Hx of Alcohol dependence Hx RLE DVT/IVC filter l Attending Attestation The exam, history, and the medical decision-making described in the above note were completed with the assistance of the mid-level provider. I reviewed and agree with the findings presented. I attest that I had a [id number] encounter with the patient on the same day, and personally performed and documented my assessment and findings in the medical record. Patient examined. Assessment and plan formulated with Haily Ahuja PA-C. I agree with the above. Progress Note: Quality VTE Deep Vein Thrombosis/Pulmonary Embolism Present on Admission: Yes
[2018-10-02] MEDS ORDERED: amLODIPine 5 MG Tablet PO ONE (15:30)
[2018-10-02] MEDS: Montelukast 10 MG Tablet PO SCH (18:29)
--- NOTE | 2018-10-02 19:27 | P.PN ---
Subjective Interval history: He has made good progress. On O2 2 L. Denies any wheezing today Coughs up clear mucus. On Levaquin for gram-negative colonization of the lungs. Physical Exam Vital signs: Vital Signs 10/01/18 19:40 10/01/18 20:00 10/01/18 23:26 Temperature 97.7 F Pulse Rate 92 H 89 Respiratory Rate 16 17 Blood Pressure 157/85 H Pulse Oximetry 95 94 L 95 10/02/18 00:43 10/02/18 03:56 10/02/18 04:00 Temperature 97.4 F L Pulse Rate 74 67 91 H Respiratory Rate 16 16 18 Blood Pressure 161/81 H Pulse Oximetry 93 L 10/02/18 07:39 10/02/18 07:40 10/02/18 07:55 Temperature 97.3 F L Pulse Rate 91 H 93 H Respiratory Rate 20 17 Blood Pressure 180/93 H Pulse Oximetry 94 L 95 10/02/18 08:00 10/02/18 11:00 10/02/18 11:26 Temperature 97.4 F L Pulse Rate 95 H 93 H Respiratory Rate 17 20 Blood Pressure 155/86 H Pulse Oximetry 93 L 93 L 10/02/18 15:32 10/02/18 15:34 Temperature 97.6 F Pulse Rate 94 H 97 H Respiratory Rate 18 22 Blood Pressure 155/77 H Pulse Oximetry 94 L Intake & Output 10/02/18 10/02/18 10/03/18 06:59 18:59 06:59 Intake Total 360 / 360 Balance 360 / 360 Intake: Oral 360 / 360 Other: # Voids 6 Date of Last Bowel Movement 09/30/18 09/30/18 Narrative: GENERAL: Averagely built middle-aged white male alert and not dyspneic SKIN: Warm and dry. HEAD: Normocephalic. EYES: No scleral icterus. No injection or drainage. NECK: Supple, trachea midline. No JVD or lymphadenopathy. CARDIOVASCULAR: Regular rate and rhythm without murmurs, gallops, or rubs. RESPIRATORY: Decreased breath sounds with few wheezes scattered and crackles in the right lung field GASTROINTESTINAL: Abdomen soft, non-tender, nondistended. MUSCULOSKELETAL: No cyanosis, or edema. BACK: Nontender without obvious deformity. No CVA tenderness. Neuro: No focal deficit. Results - Labs CBC & Chem 7: 09/27/18 06:47 02/24/19 05:43 Assessment and Plan - Assessment (1) Sleep apnea Code(s): G47.30 - Sleep apnea, unspecified Status: Acute (2) Acute exacerbation of chronic obstructive pulmonary disease (COPD) Code(s): J44.1 - Chronic obstructive pulmonary disease with (acute) exacerbation Status: Acute (3) Sepsis Code(s): A41.9 - Sepsis, unspecified organism Status: Acute (4) Acute respiratory distress Code(s): R06.03 - Acute respiratory distress Status: Acute (5) Leukocytosis Code(s): D72.829 - Elevated white blood cell count, unspecified Status: Acute (6) Acute respiratory infection Code(s): J22 - Unspecified acute lower respiratory infection Status: Acute - Plan #1 Continue Levaquin 500 mg daily for gram-negative colonization 2. DuoNeb nebs every 4 hours. 3. Taper Solu-Medrol 40 mg IV every 8Hr 4. Brio Ellipta 200 x 5 mcg 1 puff daily 5. DC Mucomyst nebs since patient refused 6. Switch to p.o. meds in a.m. (3) Sepsis Qualifiers: Sepsis type: sepsis due to unspecified organism Qualified Code(s): A41.9 - Sepsis, unspecified organism (5) Leukocytosis Qualifiers: Leukocytosis type: unspecified Qualified Code(s): D72.829 - Elevated white blood cell count, unspecified
[2018-10-02] MEDS: guaiFENesin/Codeine Syrup 200 MG/20 MG 10 ML UDC PO PRN (21:46)
[2018-10-03] MEDS: MethylPREDNISolone Sod Succinate Inj 125 MG/2 ML Vial IV.PUSH SCH (05:16)
[2018-10-03] MEDS: Lisinopril 20 MG Tablet PO SCH ×2 (08:06→22:40)
[2018-10-03] MEDS: levoFLOXacin 500 MG Tablet PO SCH (08:06)
[2018-10-03] MEDS: amLODIPine 5 MG Tablet PO SCH (08:06)
[2018-10-03] MEDS: Loratadine 10 MG Tablet PO SCH (08:07)
--- NOTE | 2018-10-03 10:23 | P.PNIM ---
Subjective Interval history: Patient sitting up on the edge of the bed working with PT reports cough and breathing much better Physical Exam Vital signs: Last Vital Signs Temp 98.6 F 10/03/18 08:00 Pulse 113 H 10/03/18 08:00 Resp 20 10/03/18 08:00 BP 150/70 H 10/03/18 08:00 Pulse Ox 91 L 10/03/18 08:00 Narrative: General: NAD, AAOx3 Chest: clear left upper lobe, crackles LLL- improving Cardiac: Regular Abd: +BS, soft ND/NT Ext: no edema Results Labs CBC & Chem 7: 09/27/18 06:47 09/28/18 05:43 Assessment and Plan Assessment (1) Acute exacerbation of chronic obstructive pulmonary disease (COPD): Code(s): J44.1 - Chronic obstructive pulmonary disease with (acute) exacerbation Status: Acute (2) Acute respiratory distress: Code(s): R06.03 - Acute respiratory distress Status: Acute Plan Severe COPD/ dep with acute exacerbation - Cont iv Solu-Medrol -> (10/01) decreased to solu medrol 60mg Q12H -> changed to oral prednisone (10/03) - Cont nebulizer therapy Q4H scheduled and PRN - Supplemental oxygen - Pt is on Breo Ellipta and Incruse ellipta - Cont Rocephin and azithromycin - Cont. Claritin D for sinus drainage - adjust meds for oral thrush, Fluconazole liquid daily. - Pt refusing mucomyst - pt requested Robitusin - Sputum gram stain with Stenotrophomonas maltophilia and Klebsiella pneumoniae both sensitive to Levaquin - DC Diflucan 10/01 - Levaquin started 10/01 - consult to pulmonology who ordered CT chest - Chest CT 10/01/18 1. Stable postsurgical changes in the right hemithorax with volume loss, apical bleb and pleural parenchymal scarring. No superimposed acute infiltrate. 2. Old granulomatous disease bilaterally, left greater than right. 3. Atherosclerotic calcification of the coronary arteries. Hx RUL lobectomy for aspergillus infection 02/14/[address] Hope - Re-do right thoracotomy, RLL superior segmentectomy, right middle lobe wedge resection and talc pleurodesis on 02/20/12 for persistent right lung leak. CAD HTN Hyperlipidemia Anxiety Hx of Alcohol dependence Hx RLE DVT/IVC filter Plan to DC in AM l Attending Attestation The exam, history, and the medical decision-making described in the above note were completed with the assistance of the mid-level provider. I reviewed and agree with the findings presented. I attest that I had a [id number] encounter with the patient on the same day, and personally performed and documented my assessment and findings in the medical record. Patient examined. Assessment and plan formulated with Haily Ahuja PA-C. I agree with the above. lungs clear today. Change solumedrol to PO prednisone. If appears stable tomorrow will discharge to home with PT and HHC Progress Note: Quality VTE Deep Vein Thrombosis/Pulmonary Embolism Present on Admission: Yes
--- NOTE | 2018-10-03 11:24 | P.PN ---
Subjective Interval history: Feels better today. Less wheezing and cough. On O2 at 2 L. No chest pains or leg edema. Physical Exam Vital signs: Vital Signs 10/02/18 11:26 10/02/18 15:32 10/02/18 15:34 Temperature 97.6 F Pulse Rate 93 H 94 H 97 H Respiratory Rate 20 18 22 Blood Pressure 155/77 H Pulse Oximetry 94 L 10/02/18 19:50 10/02/18 19:52 10/02/18 21:06 Temperature 97.8 F Pulse Rate 97 H 92 H Respiratory Rate 17 Blood Pressure 154/86 H Pulse Oximetry 93 L 93 L 95 10/02/18 23:10 10/02/18 23:40 10/03/18 03:25 Temperature 97.3 F L Pulse Rate 69 88 78 Respiratory Rate 16 17 16 Blood Pressure 147/71 H Pulse Oximetry 94 L 10/03/18 07:25 10/03/18 07:26 10/03/18 08:00 Temperature 98.6 F Pulse Rate 88 113 H Respiratory Rate 14 20 Blood Pressure 150/70 H Pulse Oximetry 96 91 L 10/03/18 11:15 Temperature Pulse Rate 101 H Respiratory Rate 16 Blood Pressure Pulse Oximetry Intake & Output 10/02/18 10/03/18 10/03/18 18:59 06:59 18:59 Other: # Voids 4 Date of Last Bowel Movement 09/30/18 10/02/18 Narrative: GENERAL: Averagely built middle-aged white male alert and oriented SKIN: Warm and dry. HEAD: Normocephalic. EYES: No scleral icterus. No injection or drainage. NECK: Supple, trachea midline. No JVD or lymphadenopathy. CARDIOVASCULAR: Regular rate and rhythm without murmurs, gallops, or rubs. RESPIRATORY: Decreased breath sounds with few wheezes scattered and no crackles. GASTROINTESTINAL: Abdomen soft, non-tender, nondistended. MUSCULOSKELETAL: No cyanosis, or edema. BACK: Nontender without obvious deformity. No CVA tenderness. Neuro: No focal deficit. Results - Labs CBC & Chem 7: 09/27/18 06:47 09/28/18 05:43 Assessment and Plan - Assessment (1) Sleep apnea Code(s): G47.30 - Sleep apnea, unspecified Status: Acute (2) Acute exacerbation of chronic obstructive pulmonary disease (COPD) Code(s): J44.1 - Chronic obstructive pulmonary disease with (acute) exacerbation Status: Acute (3) Sepsis Code(s): A41.9 - Sepsis, unspecified organism Status: Acute (4) Acute respiratory distress Code(s): R06.03 - Acute respiratory distress Status: Acute (5) Leukocytosis Code(s): D72.829 - Elevated white blood cell count, unspecified Status: Acute (6) Acute respiratory infection Code(s): J22 - Unspecified acute lower respiratory infection Status: Acute - Plan #1 Continue Levaquin 500 mg daily times 7 days for gram-negative colonization 2. DuoNeb nebs every 4 hours. 3. DC Solu-Medrol 4. Brio Ellipta 200 x 5 mcg 1 puff daily 5. Add prednisone 40 mg daily and taper 6. Home over the weekend and outpatient follow-up. 7. O2 2 L nasal cannula and home O2. (3) Sepsis Qualifiers: Sepsis type: sepsis due to unspecified organism Qualified Code(s): A41.9 - Sepsis, unspecified organism (5) Leukocytosis Qualifiers: Leukocytosis type: unspecified Qualified Code(s): D72.829 - Elevated white blood cell count, unspecified
[2018-10-03] MEDS: LORazepam 1 MG Tablet PO PRN (11:43)
--- NOTE | 2018-10-03 15:27 | P.DCO ---
Diagnosis (1) Acute exacerbation of chronic obstructive pulmonary disease (COPD): Status: Acute (2) Acute respiratory distress: Status: Acute Home Health Nursing Order: Medical education, Signs/symptoms of disease process, Medication education-adverse effect and Nursing assessment with vital signs Case Management Consult Case Management Consult-Home Health: Yes I have seen patient Giovanni Lizama on 10/03/18. My clinical findings support the need for the requested home health care services because: Limited mobility due to disease progression I certify that my clinical findings support that this patient is homebound because: Hx COPD - exertion dyspnea/weakness
--- NOTE | 2018-10-03 15:29 | P.DS ---
DS: Providers Date of admission: 09/26/18 19:13 Discharge 10/04/18 Primary care physician: Mik Clement MD Consults: 09/30/18 17:21 Consult to Pulmonology Routine Consulting Provider: Inderjit Casas V Reason for Consultation: COPD exacerbation, pneumonia and hx of fungal infection requiring RUL lobectomy Notified:: Service Spoke with:: rubia Date Notified:: 09/30/18 Time Notified:: 17:43 Ordering Provider: SHAHID Brief History from admission: Mr. Sanon is a 63-year-old white male who presented to the emergency department today with worsening shortness of breath and cough over a 3-day time period. He has a known history of hypertension and severe COPD he is followed by pulmonary is on chronic home oxygen at 2 L also prednisone at a dose of 90 mg wheezing give recently given by pulmonary, home nebulizer treatment, with no improvement in his symptoms. Patient came to the emergency room denied any fevers but did complain of feeling some warm sensations and some hot flashes. He does have a history of a pneumonectomy right apical lung lobe 2013, and had a fungal infection at that time. Patient in the emergency room was treated with several nebulizer treatments initial feeling was possibly consistent with congestive heart failure so he did receive Lasix nitro chest x-ray was done which showed no active congestive heart failure nor did it show any pneumonia at this time however his symptoms are consistent with a bronchitic picture he did meet sepsis criteria with a elevated WBC count of 19,000 he was slightly hypoxic on initial arrival and he also was tachypneic. Patient will be admitted for IV antibiotics as well duo nebulizer treatment and IV Solu-Medrol. DS: Diagnosis Discharge Diagnosis (1) Acute exacerbation of chronic obstructive pulmonary disease (COPD): Status: Acute (2) Acute respiratory distress: Status: Acute DS: Summary Severe COPD/ dep with acute exacerbation - Cont iv Solu-Medrol -> (10/01) decreased to solu medrol 60mg Q12H - Cont nebulizer therapy Q4H scheduled and PRN - Supplemental oxygen - Pt is on Breo Ellipta and Incruse ellipta - Cont Rocephin and azithromycin - Cont. Claritin D for sinus drainage - adjust meds for oral thrush, Fluconazole liquid daily. - Pt refusing mucomyst - pt requested Robitusin - Sputum gram stain with Stenotrophomonas maltophilia and Klebsiella pneumoniae both sensitive to Levaquin - DC Diflucan 10/01 - Levaquin started 10/01 - consult to pulmonology who ordered CT chest - Chest CT 10/01/18 1. Stable postsurgical changes in the right hemithorax with volume loss, apical bleb and pleural parenchymal scarring. No superimposed acute infiltrate. 2. Old granulomatous disease bilaterally, left greater than right. 3. Atherosclerotic calcification of the coronary arteries. Hx RUL lobectomy for aspergillus infection 02/14/[address] Hope - Re-do right thoracotomy, RLL superior segmentectomy, right middle lobe wedge resection and talc pleurodesis on 02/20/12 for persistent right lung leak. CAD HTN Hyperlipidemia Anxiety Hx of Alcohol dependence Hx RLE DVT/IVC filter Attending Attestation: The exam, history, and the medical decision-making described in the above note were completed with the assistance of the mid-level provider. I reviewed and agree with the findings presented. I attest that I had a [id number] encounter with the patient on the same day, and personally performed and documented my assessment and findings in the medical record. Patient examined. Assessment and plan formulated with Haily Ahuja PA-C. I agree with the above. Time Spent with Patient Total time spent providing and/or coordinating discharge services: Quality: VTE Deep Vein Thrombosis/Pulmonary Embolism Present on Admission: Yes Exam Narrative Exam Narrative: General: NAD, AAOx3 Chest: clear left upper lobe, crackles LLL- improving Cardiac: Regular Abd: +BS, soft ND/NT Ext: no edema Results Impressions ITS Impressions Chest X-Ray 09/26/18 15:25 CONCLUSION: Stable appearance of the chest. Chest CT 10/01/18 00:00 CONCLUSION: 1. Stable postsurgical changes in the right hemithorax with volume loss, apical bleb and pleural parenchymal scarring. No superimposed acute infiltrate. 2. Old granulomatous disease bilaterally, left greater than right. 3. Atherosclerotic calcification of the coronary arteries. Discharge Plan Discharge Disposition Patient Disposition: W/Home Health Service Discharge Condition Condition: Stable Discharge Order Discharge Orders: Discharge Order (Routine); Ordered 10/04/18 Ordered By: Haily Ahuja Discharge Details Anticipated Discharge Date: 10/04/18 Physicians Team Primary Care Provider: Mik Clement Attending Provider: Phillip Evans Other Providers: Inderjit Casas V ; [facility] Rxs /Orders / Referrals /Forms Prescriptions: New amlodipine [Norvasc] 5 mg Tablet 5 mg PO DAILY 30 Days Qty: 30 RF: 0 prednisone 20 mg tablet See Label Instructions .ROUTE .COMPLEX Qty: 27 RF: 0 Continue lisinopril 20 mg Tablet 20 mg PO BID RF: 0 thiamine HCl (vitamin B1) 100 mg Tablet 100 mg PO DAILY RF: 0 hydrocodone-acetaminophen 7.5-325 mg Tablet 1 tab PO TID PRN (Reason: Pain) RF: 0 pantoprazole 40 mg Tablet,Delayed Release (Dr/Ec) 40 mg PO DAILY RF: 0 montelukast 10 mg Tablet 10 mg PO QPM RF: 0 lorazepam 1 mg Tablet 1 mg PO TID PRN (Reason: anxiety) RF: 0 albuterol sulfate [Ventolin HFA] 90 mcg/actuation Hfa Aerosol Inhaler 2 puff INHALATION Q4-6H PRN (Reason: SOB) RF: 0 loratadine 10 mg Tablet 10 mg PO DAILY RF: 0 umeclidinium [Incruse Ellipta] 62.5 mcg/actuation Blister With Device 1 inh INHALATION Q24H RF: 0 fluticasone-vilanterol [Breo Ellipta] 200-25 mcg/dose Blister With Device 1 inh INHALATION DAILY RF: 0 ipratropium-albuterol 0.5 mg-3 mg(2.5 mg base)/3 mL Solution For Nebulization 3 ml INHALATION Q6H 30 Days Qty: 90 RF: 0 Discontinued prednisone 10 mg tablet 30 mg PO DIRECTED Qty: 65 RF: 0 Referrals: Kody Giang MD [Physician] - See Instructions (follow up in 1 week) Fer Shea MD [Physician] - See Instructions (Follow up in 1 week) Discharge Instructions Patient Printed Instructions: ARDS (Acute Respiratory Distress Syndrome) (GEN) , Oral Candidiasis (ED), Pain Management (DC), COPD (Chronic Obstructive Pulmonary Disease) (DC), Chronic Lung Disease and Infection Prevention (ED), Energy Conservation Techniques (ED), Shortness of Breath (DC) Additional Instructions: If you have trouble breathing call 911 Follow up as directed Prescriptions given at time of discharge Status ED Status: Left Department Discharge Information Discharge Date/Time: 10/04/18 14:03
[2018-10-03] MEDS: Montelukast 10 MG Tablet PO SCH (18:35)
[2018-10-03] MEDS: predniSONE 20 MG Tablet PO SCH (22:40)
[2018-10-04] MEDS: LORazepam 1 MG Tablet PO PRN (02:54)
[2018-10-04] MEDS: Lisinopril 20 MG Tablet PO SCH (09:04)
[2018-10-04] MEDS: predniSONE 20 MG Tablet PO SCH (09:04)
[2018-10-04] MEDS: Loratadine 10 MG Tablet PO SCH (09:05)
[2018-10-04] MEDS: levoFLOXacin 500 MG Tablet PO SCH (09:05)
[2018-10-04] MEDS: amLODIPine 5 MG Tablet PO SCH (09:05)
[2018-10-04 09:14] VITALS: PULSE 94
[2018-10-04 11:25] VITALS: RESP 18
[2018-10-04 13:58] VITALS: BP 153/83; TEMP 97.5; O2SAT 91
== END 2018-10-04 14:03 | disposition home health service (06) | DRG 871 ==
LOC: NEPE 15:07 → NEDA 19:13 → N06 20:30
PROVIDERS: ADMIT Hospitalist; ATTEND Hospitalist
CPT/HCPCS: 71010; 71045; 71250; 80048; 80053; 83520; 83605; 83880; 84484; 85025; 85610; 85730; 87040; 87070; 87077; 87186; 87205; 90761; 90765; 90768; 90775; 94640; 94664; 94665; 94667; 94668; 96361; 96365; 96368; 96375; 97110; 97116; 97163; 99291; J0456; J0696; J1940; J2930; J3420; J7030; J7050; J7506; J7512